=== PATIENT | male | born 1940 | race Caucasian/White ===

== ENCOUNTER 2022-01-19 15:43 | Inpatient (IN) | payer MEDICARE, BC ==
[~2022-01-19] VITALS: Ht 180.3 cm; Wt 81.2 kg
[2022-01-19] MEDS ORDERED: IPRATROPIUM BROMIDE 0.5 MG/2.5 ML NEBU NEB ONE (16:15)
[2022-01-19] MEDS ORDERED: methylPREDNISolone SOD SUCC 125 MG/2 ML VIAL IV ONE (16:15)
[2022-01-19] MEDS ORDERED: ALBUTEROL SULFATE 2.5 MG/3 ML NEBU NEB ONE (16:15)
--- NOTE | 2022-01-19 16:15 | NUR ---
BIB [facility] from home with c/o SOB. Pt arrives A/OX4, states he has been short of breath for about two weeks and it has gotten progressively worse. Pt states he has hx of COPD and is on O2 2L at home. Pt arrives on O2 4L via NC. Pt placed in room 1B and placed on cont playground monitor, pulse ox and BP.
[2022-01-19] MEDS ORDERED: IPRATROPIUM BROMIDE 0.5 MG/2.5 ML NEBU ONE (16:18)
[2022-01-19] MEDS ORDERED: ALBUTEROL SULFATE 2.5 MG/ 0.5 ML NEBU ONE (16:18)
[2022-01-19 16:29] LABS: HEMATOCRIT 44.3 % (36.7-47.1); MEAN CORPUSCULAR HEMOGLOBIN 27.6 uug (23.8-33.4); MEAN CORPUSCULAR VOLUME 84.1 fL (73.0-96.2); PLATELET COUNT (AUTO) 272 K/uL (152-348)
[2022-01-19] MEDS ORDERED: methylPREDNISolone SOD SUCC 125 MG/2 ML VIAL ONE (16:30)
[2022-01-19] MEDS ORDERED: PRED2.5T PO (16:37)
[2022-01-19] MEDS ORDERED: CEFU500T66 PO (16:37)
[2022-01-19] MEDS ORDERED: FLUT1BLS6 IH (16:37)
[2022-01-19] MEDS ORDERED: TAMS-3 PO (16:37)
[2022-01-19] MEDS ORDERED: FINA5TAB11 PO (16:37)
[2022-01-19] MEDS ORDERED: LISI10TA29 PO (16:37)
[2022-01-19] MEDS ORDERED: ACLI1AER PO (16:37)
[2022-01-19] MEDS ORDERED: FURO40TA5 PO (16:37)
--- NOTE | 2022-01-19 16:40 | NUR ---
HHN TX complete, no acute distress noted at this time.
[2022-01-19 16:43] LABS: CARBON DIOXIDE 30 mmol/L (21-32); CHLORIDE 102 mmol/L (98-107); CREATININE 1.8 mg/dL (0.6-1.3); GLUCOSE 100 mg/dL (74-106); POTASSIUM 5.2 mmol/L (3.5-5.1); UREA NITROGEN, BLOOD 40 mg/dL (7-18)
[2022-01-19 16:52] LABS: ALANINE AMINOTRANSFERASE 27 U/L (16-63); ALKALINE PHOSPHATASE 108 U/L (50-136); ASPARTATE AMINOTRANSFERASE 10 U/L (15-37); BILIRUBIN,DIRECT 0.2 mg/dL (0.0-0.2); BILIRUBIN,TOTAL 0.5 mg/dL (0.2-1.0); TOTAL PROTEIN, SERUM 6.7 g/dL (6.4-8.2)
--- NOTE | 2022-01-19 18:00 | NUR ---
Called [facility] for admission, to call back.
--- NOTE | 2022-01-19 19:15 | NUR ---
Brief report received from Chinedu RN, pt on holding pattern til report can be accepted by teleRN. Nothing pending. Pt is stable, VSS, PE WNL, no complaints of sob, n/v, dizziness and only minor complaints of pain to Rt flank region. No s/sx of distress present. Will call tele after shift change to expo transport.
--- NOTE | 2022-01-19 20:30 | NUR ---
Pt being wheeled upstairs at this moment by Sup and aid going to room 318, thorough report given to staff PMRN, RN ready to accept him and green light given. Pt is aaox4, in good spirits, no s/sxof distress. VSS, PE WNL. Denies any SOB, n/v, dizziness and only complainingof mild to mod pain in rt flank region.
[2022-01-19] MEDS ORDERED: ONDANSETRON 4 MG/2 ML VIAL IV PRN (20:45)
[2022-01-19] MEDS ORDERED: IPRATROPIUM BROMIDE 0.5 MG/2.5 ML NEBU NEB PRN (20:45)
[2022-01-19] MEDS ORDERED: ALBUTEROL SULFATE 2.5 MG/3 ML NEBU NEB PRN (20:45)
--- NOTE | 2022-01-19 20:45 | NUR ---
ADMITTED PATIENT IN TELE FLOOR UNDER THE CARE OF DR. SHAY, PATIENT ALERT ORIENTED, SOB DURING EXCERTION, NO CHEST PAIN, ON 2 LITERS NC SAT WNL. USES URINAL FOR BLADDER ELIMINATION. WITH SACRUM REDNESS, ADONIS LEG/FEET DRY FLAKI SKIN, TELE MONITOR SINUS RHYTHM AT THIS TIME. CONT TO MONITOR.
[2022-01-19 21:10] VITALS: BP 157/97
[2022-01-19] MEDS: IV 1/2NS 1000 ML 1,000 ML IV PRN ×2 (21:36→21:52)
[2022-01-19] MEDS: DOCUSATE SODIUM 100 MG CAPSULE PO SCH (21:51)
[2022-01-20 00:09] VITALS: BP 136/78
[2022-01-20] MEDS: MORPHINE SULFATE 2 MG/1 ML DISP.SYRIN IV PRN (01:37)
[2022-01-20 04:18] VITALS: BP 135/80
[2022-01-20] MEDS: PANTOPRAZOLE SODIUM 40 MG TABLET.DR PO SCH (06:05)
[2022-01-20 06:27] LABS: HEMATOCRIT 41.5 % (36.7-47.1); MEAN CORPUSCULAR HEMOGLOBIN 28.5 uug (23.8-33.4); MEAN CORPUSCULAR VOLUME 84.1 fL (73.0-96.2); PLATELET COUNT (AUTO) 230 K/uL (152-348)
[2022-01-20 06:54] LABS: ALANINE AMINOTRANSFERASE 27 U/L (16-63); ALKALINE PHOSPHATASE 99 U/L (50-136); ASPARTATE AMINOTRANSFERASE 9 U/L (15-37); BILIRUBIN,TOTAL 0.5 mg/dL (0.2-1.0); CARBON DIOXIDE 30 mmol/L (21-32); CHLORIDE 102 mmol/L (98-107); CHOLESTEROL 136 mg/dL (<200); CREATININE 1.9 mg/dL (0.6-1.3); GLUCOSE 119 mg/dL (74-106); HDL CHOLESTEROL 87 mg/dL (40-60); MAGNESIUM 2.4 mg/dL (1.8-2.4); PHOSPHOROUS 4.1 mg/dL (2.5-4.9); POTASSIUM 5.2 mmol/L (3.5-5.1); TOTAL PROTEIN, SERUM 6.1 g/dL (6.4-8.2); TRIGLYCERIDES 63 MG/DL (30-150); UREA NITROGEN, BLOOD 43 mg/dL (7-18)
--- NOTE | 2022-01-20 07:30 | NUR ---
RECEIVED PATIENT IN BED AWAKE ALERT AND ORIENTED HOB UP WITH O2 AT 2L/M BY NASAL CANULA WITH NO SOB AT THIS TIME REMAIN ON IVF ORDERED WITH NO S/S OF INFILTERATION ON SITE.TELE IS SR.CALL LIGHT AND PERSONAL BELONGINGS ARE WITHIN EASY REACH MADE COMFORTABLE AND WILL CONTINUE TO OBSERVE.
[2022-01-20] MEDS: FLUTICASONE/VILANTEROL 1 EACH BLST.W.DEV INH SCH (08:24)
--- NOTE | 2022-01-20 09:59 | NUR ---
BRIAN MONTALVO CHICKEN STUFFER HERE TO SEE PATIENT WITH ORDERS FOR CT ABDOMEN/PELVIS AND CHEST NO CONTRAST AND NOTED.
--- NOTE | 2022-01-20 11:00 | NUR ---
MEDICAL RELEASE FORMS SIGNED BY THE PATIENT AND FAXED TO DR GARDNER ORDERED FOR HIS PATHOLOGY AND MEDICAL RECORD REPORT.
[2022-01-20 11:30] VITALS: BP 117/65
[2022-01-20] MEDS: IV 1/2NS 1000 ML 1,000 ML IV PRN (11:52)
--- NOTE | 2022-01-20 13:45 | NUR ---
PATIENT TAKEN BY BED TO THE RADIOLOGY DEPT FOR CT OF THE CHEST PELVIS AND ABDOMEN ORDERED AND BACK TO BED.
[2022-01-20] MEDS: methylPREDNISolone SOD SUCC 40 MG/ML VIAL IV SCH ×2 (13:57→22:16)
[2022-01-20] MEDS ORDERED: methylPREDNISolone SOD SUCC 40 MG/ML VIAL IV SCH (14:00)
[2022-01-20] MEDS: ALBUTEROL SULFATE 1.25 MG/3 ML NEBU NEB SCH ×2 (14:05→18:55)
[2022-01-20] MEDS: IPRATROPIUM BROMIDE 0.5 MG/2.5 ML NEBU NEB SCH ×2 (14:05→18:55)
[2022-01-20] MEDS ORDERED: ALBUTEROL INH PRN (17:00)
[2022-01-20] MEDS ORDERED: [UNRECOGNIZED DRUG - OTHER] INH PRN (17:00)
[2022-01-20 17:01] VITALS: BP 130/70
[2022-01-20] MEDS: [UNRECOGNIZED DRUG - OTHER] INH PRN (17:15)
[2022-01-20] MEDS: ALBUTEROL INH PRN (17:15)
--- NOTE | 2022-01-20 17:22 | NUR ---
PATIENT IS VERY ANXIOUS ASKING FOR HIS INHALER SPECIFICALLY THE ALBUTEROL STATED ITS THE ONE THAT HELPS HIM THE MOST DELORIS QUALITY CONTROL SYSTEMS MANAGER WAS NOTIFIED WITH NEW ORDERS AND NOTED GIVEN ORDERED.
[2022-01-20 20:18] VITALS: BP 146/80
[2022-01-20] MEDS: TEMAZEPAM 15 MG CAPSULE PO PRN (20:45)
[2022-01-20 21:27] LABS: *BILIRUBIN,URIN NEGATIVE (NEGATIVE); *BLOOD, URINE NEGATIVE (NEGATIVE); *CLARITY,URINE CLEAR (CLEAR); *COLOR,URINE YELLOW (YELLOW); *KETONES,URINE NEGATIVE (NEGATIVE); *UROBILINOGEN,URINE 0.2 E.U./dl (NORMAL); LEUKOCYTE ESTERASE ,URINE NEGATIVE (NEGATIVE); NITRITE, URINE POSITIVE (NEGATIVE); PH,URINE 5.5 (5.0-8.0); UGLUCOSE NEGATIVE (NEGATIVE)
[2022-01-20] MEDS: DOCUSATE SODIUM 100 MG CAPSULE PO SCH (22:00)
[2022-01-20] MEDS: TAMSULOSIN HCL 0.4 MG CAP.SR.24H PO SCH (22:15)
[2022-01-20] MEDS: levoFLOXacin 750MG/D5W 750 MG in PREMIXED 1 EACH IV SCH (22:15)
[2022-01-20 22:41] LABS: BACTERIA,URINE NONE SEEN /HPF (NONE SEEN); RBC,URINE NONE SEEN /HPF (0-3); SQUAMOUS EPITHELIAL CELL,UR FEW /HPF (NONE SEEN); WBC,URINE 0-3 /HPF (0-3)
[2022-01-21 00:35] VITALS: BP 125/74
[2022-01-21] MEDS: ALBUTEROL SULFATE 1.25 MG/3 ML NEBU NEB SCH ×4 (00:48→21:11)
[2022-01-21] MEDS: IPRATROPIUM BROMIDE 0.5 MG/2.5 ML NEBU NEB SCH ×4 (00:48→21:11)
[2022-01-21 04:24] VITALS: BP 123/68
[2022-01-21] MEDS: methylPREDNISolone SOD SUCC 40 MG/ML VIAL IV SCH ×3 (05:52→21:07)
[2022-01-21] MEDS: PANTOPRAZOLE SODIUM 40 MG TABLET.DR PO SCH (06:05)
[2022-01-21 06:31] LABS: HEMATOCRIT 40.3 % (36.7-47.1); MEAN CORPUSCULAR HEMOGLOBIN 28.3 uug (23.8-33.4); MEAN CORPUSCULAR VOLUME 83.9 fL (73.0-96.2); PLATELET COUNT (AUTO) 197 K/uL (152-348)
--- NOTE | 2022-01-21 06:38 | NUR ---
Patient rested well in between care; urine sent to lab; pt remains SOB on exertion and tolerates 2liters oxygen via nasal cannula; continue plan of care.
[2022-01-21 07:08] LABS: CARBON DIOXIDE 28 mmol/L (21-32); CHLORIDE 102 mmol/L (98-107); CREATININE 1.9 mg/dL (0.6-1.3); GLUCOSE 116 mg/dL (74-106); POTASSIUM 5.2 mmol/L (3.5-5.1); UREA NITROGEN, BLOOD 49 mg/dL (7-18)
--- NOTE | 2022-01-21 07:50 | NUR ---
received awake and oriented x4. on 2.5 lpm nc satting 98%. attempted to titrate down to 2lpm but he refused states he can't breathe at 2lpm. states at home he's at 2.5lpm as well. r/b explained but he's adamant. denies pain. iv access intact no ss of infiltration or phlebitis. bed lowest, locked and alarm on, siderails up, call light in reach. needs attended.
[2022-01-21] MEDS: FINASTERIDE 5 MG TABLET PO SCH (08:38)
[2022-01-21] MEDS: LISINOPRIL 10 MG TABLET PO SCH (08:38)
[2022-01-21] MEDS: FLUTICASONE/VILANTEROL 1 EACH BLST.W.DEV INH SCH (08:38)
[2022-01-21] MEDS: FUROSEMIDE 40 MG TABLET PO SCH (08:38)
--- NOTE | 2022-01-21 09:47 | NUR ---
vandana mederos was here and informed me she ordered thoracentesis for the patient but will let us know when it will be done pending if ultrasound is working once she hears from md. she said she informed the patient not to eat or drinking for now, but when i went to patient's room he already ate a little and drank his coffee. no rosa m made aware.
[2022-01-21 11:40] VITALS: BP 120/74
--- NOTE | 2022-01-21 12:00 | NUR ---
per route sales specialist meet, she spoke with radiologist plan for ct needed biopsy of lung mass and to keep pt npo carried out. patient made aware.
--- NOTE | 2022-01-21 14:04 | NUR ---
[id number]- contacted [facility] and asked time of thoracentesis and was informed per dr. polanco thoracentesis is on hold for now and will have biopsy for right lung mass tomorrow. contacted [facility] tech and was informed biopsy will be done tomorrow at 2pm. vandana dsouza made aware with order to resume diet and npo after midnight tonight. vandana wilburn made aware. patient aware and agreeable.
[2022-01-21 16:00] VITALS: BP 142/85
[2022-01-21] MEDS: [UNRECOGNIZED DRUG - OTHER] INH PRN (16:06)
[2022-01-21] MEDS: ALBUTEROL INH PRN (16:06)
--- NOTE | 2022-01-21 16:06 | NUR ---
pt became short of breath spo2 noted 88%, albuterol inhaler administered as ordered. encourage pursed lip, deep breathing o2 sat went up 93% will cont to observe.
--- NOTE | 2022-01-21 16:18 | NUR ---
at [address] vallecillo of frequent pac in heart rhythm with no new order received. registry np cosmo notified pt c/o sore throat with new order carried out.
[2022-01-21] MEDS: BENZOCAINE/MENTH/CETYLPYRD LOZENGE MM PRN (16:57)
--- NOTE | 2022-01-21 20:13 | NUR ---
Patient alert x4.O2 at 3LPm via NC .Denies SOB.HOB elevated.Breathing tx given by RT.NSR on tele. IV patent and intact on right FA 22g .Compliant with medication.Continent .Able to use urinal.Continue safety measures.NPO at midnight.Call light with in reach. Will continue to monitor.
[2022-01-21 20:36] VITALS: BP 142/84
[2022-01-21] MEDS: DOCUSATE SODIUM 100 MG CAPSULE PO SCH (20:42)
[2022-01-21] MEDS: TAMSULOSIN HCL 0.4 MG CAP.SR.24H PO SCH (20:42)
[2022-01-22 00:35] VITALS: BP 134/71
[2022-01-22] MEDS: IPRATROPIUM BROMIDE 0.5 MG/2.5 ML NEBU NEB SCH ×3 (01:31→20:16)
[2022-01-22] MEDS: ALBUTEROL SULFATE 1.25 MG/3 ML NEBU NEB SCH ×3 (01:32→20:17)
[2022-01-22] MEDS: ACETAMINOPHEN 325 MG TABLET PO PRN (02:11)
[2022-01-22 04:00] VITALS: BP 102/61
[2022-01-22] MEDS: methylPREDNISolone SOD SUCC 40 MG/ML VIAL IV SCH ×3 (05:38→21:22)
[2022-01-22] MEDS: PANTOPRAZOLE SODIUM 40 MG TABLET.DR PO SCH (06:05)
[2022-01-22] MEDS: FLUTICASONE/VILANTEROL 1 EACH BLST.W.DEV INH SCH (08:43)
[2022-01-22] MEDS: FUROSEMIDE 40 MG TABLET PO SCH (08:45)
[2022-01-22] MEDS: LISINOPRIL 10 MG TABLET PO SCH (08:45)
[2022-01-22] MEDS: FINASTERIDE 5 MG TABLET PO SCH (08:45)
[2022-01-22] MEDS: MORPHINE SULFATE 2 MG/1 ML DISP.SYRIN IV PRN ×2 (11:05→20:20)
[2022-01-22 11:45] VITALS: BP 95/47
[2022-01-22] MEDS ORDERED: IPRATROPIUM BROMIDE 0.5 MG/2.5 ML NEBU NEB SCH ×2 (12:00→15:00)
[2022-01-22] MEDS ORDERED: ALBUTEROL SULFATE 1.25 MG/3 ML NEBU NEB SCH (15:00)
--- NOTE | 2022-01-22 15:33 | NUR ---
patient s/p right lung biopsy, patient arrived to unit with c/o of SOB at this time, assisted patient to sit up right, offered additional pillows. spo2 96% on 3L v/s wnl at this time, no bleeding from biopsy site at this time. after 5 minutes patient states feeling better, encouraged pursed lip breathing. - severiano hays RN
[2022-01-22 16:01] VITALS: BP 141/77
[2022-01-22] MEDS: BENZOCAINE/MENTH/CETYLPYRD LOZENGE MM PRN (16:32)
[2022-01-22 20:00] VITALS: BP 111/60
[2022-01-22] MEDS: TAMSULOSIN HCL 0.4 MG CAP.SR.24H PO SCH (20:20)
[2022-01-22] MEDS: DOCUSATE SODIUM 100 MG CAPSULE PO SCH ×2 (20:20→21:00)
[2022-01-22] MEDS: levoFLOXacin 750MG/D5W 750 MG in PREMIXED 1 EACH IV SCH (21:22)
[2022-01-22] MEDS ORDERED: SODIUM POLYSTYRENE SULFONATE 15 G/60 ML LIQUID UDC PO ONE (23:45)
[2022-01-23] VITALS: BP 121/68
[2022-01-23] MEDS: IPRATROPIUM BROMIDE 0.5 MG/2.5 ML NEBU NEB SCH ×4 (00:38→20:15)
[2022-01-23] MEDS: ALBUTEROL SULFATE 1.25 MG/3 ML NEBU NEB SCH ×4 (00:38→20:15)
[2022-01-23] MEDS ORDERED: SODIUM POLYSTYRENE SULFONATE 15 G/60 ML LIQUID UDC PO ONE (01:15)
[2022-01-23 04:00] VITALS: BP 121/72
[2022-01-23] MEDS: methylPREDNISolone SOD SUCC 40 MG/ML VIAL IV SCH ×3 (06:19→21:34)
[2022-01-23] MEDS: PANTOPRAZOLE SODIUM 40 MG TABLET.DR PO SCH (06:19)
[2022-01-23] MEDS: BENZOCAINE/MENTH/CETYLPYRD LOZENGE MM PRN (06:21)
--- NOTE | 2022-01-23 06:43 | NUR ---
Slept throughout the night. No pain. C/o SOB on exertion. On 3L NC, tolerating well. When O2 titrated down, states increased SOB. Able to make needs known. Safety maintained. Will endorse to day shift.
[2022-01-23 06:50] LABS: HEMATOCRIT 41.1 % (36.7-47.1); MEAN CORPUSCULAR HEMOGLOBIN 28.8 uug (23.8-33.4); MEAN CORPUSCULAR VOLUME 84.1 fL (73.0-96.2); PLATELET COUNT (AUTO) 178 K/uL (152-348)
[2022-01-23 07:01] LABS: CARBON DIOXIDE 32 mmol/L (21-32); CHLORIDE 102 mmol/L (98-107); CREATININE 2.1 mg/dL (0.6-1.3); GLUCOSE 135 mg/dL (74-106); POTASSIUM 5.6 mmol/L (3.5-5.1); UREA NITROGEN, BLOOD 72 mg/dL (7-18)
--- NOTE | 2022-01-23 07:53 | NUR ---
Received pt, pt is sleeping at this time, oxygen titrated from 3L to 2L nasal cannula. Pt saturating 97%. will continue to monitor.
[2022-01-23] MEDS: FUROSEMIDE 40 MG TABLET PO SCH (09:50)
[2022-01-23] MEDS: LISINOPRIL 10 MG TABLET PO SCH (09:50)
[2022-01-23] MEDS: FLUTICASONE/VILANTEROL 1 EACH BLST.W.DEV INH SCH (09:51)
[2022-01-23] MEDS: FINASTERIDE 5 MG TABLET PO SCH (09:51)
[2022-01-23 16:07] VITALS: BP 111/76
--- NOTE | 2022-01-23 19:00 | NUR ---
Received patient on bed, alert and oriented x3-4, no shortness of breath, on oxygen at 2L/min via NC. Safety precautions provided, Reoriented fo the use of call light, call light placed within reach.
[2022-01-23] MEDS: DOCUSATE SODIUM 100 MG CAPSULE PO SCH (20:01)
[2022-01-23] MEDS: TAMSULOSIN HCL 0.4 MG CAP.SR.24H PO SCH (20:01)
[2022-01-23] MEDS: ACETAMINOPHEN 325 MG TABLET PO PRN (20:01)
--- NOTE | 2022-01-23 20:10 | NUR ---
Requested for Tylenol for mild pain 3/10 at right lower rib.
[2022-01-24 00:26] VITALS: BP 128/66
[2022-01-24] MEDS: ALBUTEROL SULFATE 1.25 MG/3 ML NEBU NEB SCH ×4 (01:30→19:29)
[2022-01-24] MEDS: IPRATROPIUM BROMIDE 0.5 MG/2.5 ML NEBU NEB SCH ×4 (01:30→19:29)
[2022-01-24 04:48] VITALS: BP 135/63
--- NOTE | 2022-01-24 05:40 | NUR ---
Slept intermittently, with continuous O2 at 2L/min via NC, not in labored breathing, no complaint of pain. Compliant with medications, patient in fair condition.
--- NOTE | 2022-01-24 05:44 | NUR ---
On sinus rhythm with regular PAC, HR 70-103/min
[2022-01-24] MEDS: PANTOPRAZOLE SODIUM 40 MG TABLET.DR PO SCH (06:06)
[2022-01-24] MEDS: methylPREDNISolone SOD SUCC 40 MG/ML VIAL IV SCH ×3 (06:07→21:09)
[2022-01-24 07:24] LABS: HEMATOCRIT 41.7 % (36.7-47.1); MEAN CORPUSCULAR HEMOGLOBIN 28.1 uug (23.8-33.4); PLATELET COUNT (AUTO) 183 K/uL (152-348)
[2022-01-24 07:34] LABS: CARBON DIOXIDE 32 mmol/L (21-32); CHLORIDE 103 mmol/L (98-107); CREATININE 2.1 mg/dL (0.6-1.3); GLUCOSE 142 mg/dL (74-106); UREA NITROGEN, BLOOD 70 mg/dL (7-18)
[2022-01-24] MEDS: FINASTERIDE 5 MG TABLET PO SCH (09:52)
[2022-01-24] MEDS: FLUTICASONE/VILANTEROL 1 EACH BLST.W.DEV INH SCH (09:52)
[2022-01-24] MEDS: FUROSEMIDE 40 MG TABLET PO SCH (09:52)
[2022-01-24] MEDS: LISINOPRIL 10 MG TABLET PO SCH (10:10)
[2022-01-24 11:44] VITALS: BP 129/79
--- NOTE | 2022-01-24 11:55 | NUR ---
pt picked up by [facility] ambulance, BLS ok per . Pt being transported to [facility] for MRI of ORB face and neck with and without contrast. Contrast consent signed by pt, mri checklist complete, IV site intact and patent. Pt vitals 98.4 temp BP 129/79, HR 86 rr 18 SpO2 99% on 2L NC.
--- NOTE | 2022-01-24 14:30 | NUR ---
pt unable to complete MRI due to inability to lay still. pt stable on 2 L NC, does not want to titrate lower although saturates at 98%. Call light within reach, comfort measures provided, no signs of acute distress.
[2022-01-24 16:00] VITALS: BP 126/70
[2022-01-24] MEDS: GLUCERNA SHAKE 237 ML CAN PO SCH (16:56)
[2022-01-24 19:48] VITALS: BP 132/69
[2022-01-24] MEDS: DOCUSATE SODIUM 100 MG CAPSULE PO SCH (20:40)
[2022-01-24] MEDS: TAMSULOSIN HCL 0.4 MG CAP.SR.24H PO SCH (20:40)
[2022-01-24] MEDS: BENZOCAINE/MENTH/CETYLPYRD LOZENGE MM PRN (20:50)
[2022-01-24] MEDS: levoFLOXacin 750MG/D5W 750 MG in PREMIXED 1 EACH IV SCH (21:09)
[2022-01-24] MEDS: MORPHINE SULFATE 2 MG/1 ML DISP.SYRIN IV PRN (21:18)
[2022-01-24] MEDS: ACETAMINOPHEN 325 MG TABLET PO PRN (21:25)
[2022-01-24] MEDS: IV NS 1000 ML 1,000 ML IV SCH (23:36)
[2022-01-25] VITALS: BP 117/58
[2022-01-25] MEDS: ALBUTEROL SULFATE 1.25 MG/3 ML NEBU NEB SCH ×5 (01:14→19:22)
[2022-01-25] MEDS: IPRATROPIUM BROMIDE 0.5 MG/2.5 ML NEBU NEB SCH ×5 (01:14→19:22)
[2022-01-25 04:00] VITALS: BP 122/67
--- NOTE | 2022-01-25 05:40 | NUR ---
Slept intermittently. Pt is alert and able to make needs known. Pt wanted to refuse colace, educated on importance of medication and pt educated that he did not have a bowel movement since being admitted, he stated that he does not want to have one while he is admitted in the hospital. Explained to patient that having regular bowel movements is encouraged and that he should take his colace and patient agreed. IV site is intact. Satting 96%-98% on 2L but still c/o SOB. Tolerated all medications given. Safety maintained throughout the shift. Will endorse to day shift.
[2022-01-25] MEDS: PANTOPRAZOLE SODIUM 40 MG TABLET.DR PO SCH (06:21)
[2022-01-25] MEDS: methylPREDNISolone SOD SUCC 40 MG/ML VIAL IV SCH ×3 (06:21→16:56)
[2022-01-25] MEDS: IV NS 1000 ML 1,000 ML IV SCH ×3 (06:22→23:48)
[2022-01-25 07:10] LABS: HEMATOCRIT 41.8 % (36.7-47.1); MEAN CORPUSCULAR HEMOGLOBIN 28.2 uug (23.8-33.4); MEAN CORPUSCULAR VOLUME 84.2 fL (73.0-96.2); PLATELET COUNT (AUTO) 149 K/uL (152-348)
[2022-01-25 07:25] LABS: CARBON DIOXIDE 31 mmol/L (21-32); CHLORIDE 105 mmol/L (98-107); GLUCOSE 116 mg/dL (74-106); POTASSIUM 5.2 mmol/L (3.5-5.1)
[2022-01-25 07:38] LABS: UREA NITROGEN, BLOOD 83 mg/dL (7-18)
--- NOTE | 2022-01-25 07:50 | NUR ---
received awake and oriented x4, on his cellphone. on 2 lpm nc satting 98% but noted still with episodes of labored breathing. encouraged pursed lip breathing and pt is compliant. nsr on tele with frequent pacs. denies pain. iv access intact. safety maintained. kept comfortable
[2022-01-25 08:32] VITALS: BP 124/62
[2022-01-25] MEDS: GLUCERNA SHAKE 237 ML CAN PO SCH ×2 (08:49→16:56)
[2022-01-25] MEDS: FUROSEMIDE 40 MG TABLET PO SCH (08:49)
[2022-01-25] MEDS: LISINOPRIL 10 MG TABLET PO SCH (08:49)
[2022-01-25] MEDS: FINASTERIDE 5 MG TABLET PO SCH (08:49)
[2022-01-25] MEDS: FLUTICASONE/VILANTEROL 1 EACH BLST.W.DEV INH SCH (08:50)
[2022-01-25 11:41] VITALS: BP 134/74
[2022-01-25 16:29] VITALS: BP 125/57
--- NOTE | 2022-01-25 18:32 | NUR ---
dyspnea with exertion. denies pain. needs attended.
[2022-01-25 20:00] VITALS: BP 149/89
[2022-01-25] MEDS: TAMSULOSIN HCL 0.4 MG CAP.SR.24H PO SCH (20:07)
[2022-01-25] MEDS: DOCUSATE SODIUM 100 MG CAPSULE PO SCH (20:13)
[2022-01-26] VITALS: BP 138/75
[2022-01-26] MEDS: ALBUTEROL SULFATE 1.25 MG/3 ML NEBU NEB SCH ×4 (01:16→20:34)
[2022-01-26] MEDS: IPRATROPIUM BROMIDE 0.5 MG/2.5 ML NEBU NEB SCH ×4 (01:16→20:34)
[2022-01-26] MEDS: ACETAMINOPHEN 325 MG TABLET PO PRN ×2 (01:32→21:06)
[2022-01-26 04:00] VITALS: BP 140/82
[2022-01-26] MEDS: PANTOPRAZOLE SODIUM 40 MG TABLET.DR PO SCH (06:16)
[2022-01-26 06:49] LABS: HEMATOCRIT 41.9 % (36.7-47.1); MEAN CORPUSCULAR VOLUME 84.3 fL (73.0-96.2); PLATELET COUNT (AUTO) 157 K/uL (152-348)
[2022-01-26 06:54] LABS: CARBON DIOXIDE 31 mmol/L (21-32); CHLORIDE 108 mmol/L (98-107); GLUCOSE 112 mg/dL (74-106); POTASSIUM 5.1 mmol/L (3.5-5.1); UREA NITROGEN, BLOOD 71 mg/dL (7-18)
--- NOTE | 2022-01-26 07:00 | NUR ---
Patient slept intermittently.HOB elevated .NSR on tele. Noted SOB after morning care.O2 sat went down to 82 %.Placed patient on simple mask at 6 LPM saturating at 99 %.Pierre Menchaca notified. Awaiting response.
--- NOTE | 2022-01-26 07:12 | NUR ---
Patient stated he feels better.Oxygen titrate back to 3LPM via NC saturating 97 -98 %.HOB remained elevated. Call light with in reach.Endorse to oncoming shift.
[2022-01-26] MEDS: IV NS 1000 ML 1,000 ML IV SCH ×4 (07:30→17:51)
--- NOTE | 2022-01-26 08:00 | NUR ---
RECEIVED PATIENT IN BED AWAKE ALERT AND ORIENTED WITH O2 AR 3L/M BY N/C WITH NO SOB AT THIS TIME DENIES DISCOMFORTS CALL LIGHTS AND HIS PERSONAL BELONGINGS ARE WITHIN EASY REACH WILL CONTINUE TO OBSERVE
[2022-01-26] MEDS: methylPREDNISolone SOD SUCC 40 MG/ML VIAL IV SCH (08:38)
[2022-01-26] MEDS: FINASTERIDE 5 MG TABLET PO SCH (08:38)
[2022-01-26] MEDS: FLUTICASONE/VILANTEROL 1 EACH BLST.W.DEV INH SCH (08:39)
[2022-01-26] MEDS: GLUCERNA SHAKE 237 ML CAN PO SCH ×2 (08:39→17:02)
[2022-01-26 12:09] VITALS: BP 140/78
--- NOTE | 2022-01-26 13:03 | NUR ---
PATIENT IS HAVING DIFFICULTY BREATHING HE IS HAVING PHYSICAL THERAPY AND HIS SATS ARE AT 87 PERCENT O2 INCREASED TO 5L/M AND HIS SATS ARE NOW 90-91 PERCENT DELORIS BAH HERE AND AWARE WITH NEW ORDERS AND NOTED.
[2022-01-26 13:46] LABS: ABG BASE EXCESS 0.4 mmol/L; ABG HCO3 27.1 mmol/L; ABG PCO2 51.2 mmHg (35.0-45.0); ABG PH 7.341 (7.350-7.450); ABG PO2 76.5 mmHg (75.0-100.0); ABG SITE RIGHT RADIAL; ABG TOTAL HEMOGLOBIN 15.2 G/dL (13.5-18.0); COHb 0.9 % (0.5-1.5); MetHb 0.2 % (0.0-1.5); O2Hb 93.7 % (94.0-97.0); VENT MODE Nasal Cannula
[2022-01-26] MEDS ORDERED: CEFEPIME HCL 1 G in IV DEXTROSE 5% 50 ML IV SCH (14:00)
[2022-01-26] MEDS: CEFEPIME HCL 1 G in IV DEXTROSE 5% 50 ML IV SCH (14:07)
[2022-01-26] MEDS: methylPREDNISolone SOD SUCC 125 MG/2 ML VIAL IV SCH ×2 (15:11→21:07)
--- NOTE | 2022-01-26 15:13 | NUR ---
IVF INFUSING NO NEED TO HANG A NEW BAG AT THIS TIME.
--- NOTE | 2022-01-26 15:30 | NUR ---
TOSHA DAVILA HERE TO TAKE PATIENT FOR CT NECK AND FACE ORDERED BUT PATIENT REFUSED STATED UNABLE TO LAY FLAT TO HAVE THIS PROCEDURE DONE DELORIS BAH HERE AND AWARE WITH NO NEW ORDERS AT THIS TIME.
[2022-01-26 16:52] VITALS: BP 143/62
[2022-01-26] MEDS ORDERED: methylPREDNISolone SOD SUCC 40 MG/ML VIAL IV SCH (17:00)
--- NOTE | 2022-01-26 18:00 | NUR ---
O2 TITRATED TO 2L/M AT THIS TIME AND HE IS TOLERATING IT WITH ADEQUATE SATS HHN GIVEN ORDERED MADE COMFORTABLE AND WILL CONTINUE TO OBSERVE.
--- NOTE | 2022-01-26 19:30 | NUR ---
Received pt awake, alert and orientex4. Pt in no acute distress.Pt on sinus rhythm. Iv intact. Pt on3l nasal cannula Safety and comfort provided. Will continue to monitor.
[2022-01-26 20:00] VITALS: BP 153/92
[2022-01-26] MEDS: TAMSULOSIN HCL 0.4 MG CAP.SR.24H PO SCH (21:00)
--- NOTE | 2022-01-26 21:00 | NUR ---
Pt offered to change his diaper, fix his bed and turned him. Pt refused and doesn't want to be moved. Will continue to monitor.
[2022-01-26] MEDS: DOCUSATE SODIUM 100 MG CAPSULE PO SCH (21:06)
[2022-01-26] MEDS: levoFLOXacin 750MG/D5W 750 MG in PREMIXED 1 EACH IV SCH (21:06)
[2022-01-26] MEDS: TEMAZEPAM 15 MG CAPSULE PO PRN (23:08)
[2022-01-27] VITALS: BP 127/66
--- NOTE | 2022-01-27 00:30 | NUR ---
Pt in no acute distress. Pt offered to change his position and change diaper. Pt refusing. Pt was told the risk and benefits of turning position but pt still refused. Pt state he is fine and doesn't want to be move.
[2022-01-27] MEDS: ALBUTEROL SULFATE 1.25 MG/3 ML NEBU NEB SCH ×4 (01:18→21:01)
[2022-01-27] MEDS: IPRATROPIUM BROMIDE 0.5 MG/2.5 ML NEBU NEB SCH ×4 (01:19→21:01)
[2022-01-27] MEDS: CEFEPIME HCL 1 G in IV DEXTROSE 5% 50 ML IV SCH ×2 (02:43→14:02)
[2022-01-27 04:00] VITALS: BP 134/88
[2022-01-27] MEDS: IV NS 1000 ML 1,000 ML IV SCH (05:36)
[2022-01-27] MEDS: methylPREDNISolone SOD SUCC 125 MG/2 ML VIAL IV SCH ×3 (06:07→21:59)
[2022-01-27] MEDS: PANTOPRAZOLE SODIUM 40 MG TABLET.DR PO SCH (06:07)
--- NOTE | 2022-01-27 06:26 | NUR ---
Pt offered numerous times for him to be turned q2h and change diaper. Pt refusing. Pt educated about the risk and benefits of changing position on bed to prevent pressure ulcer but pt still refused. Pt stated he doesn't want to be moved. Pt stable and in no acute distress. Will continue to monitor and endorse to incoming nurse.
--- NOTE | 2022-01-27 06:27 | NUR ---
Pt slept comfortably. Pt in no acute distress. Pt on sinus rhythm. Pt prescribed medication given and pt tolerated it well. Pt given Tylenol 650 mg prn at 2106H. Pt tolerated it well. Restoril prn given at 2308h as per pt request. Pt tolerated it well. All needs are met. Pt stable. Pt refused to be change by campus coordinator. Safety and comfort provided. Will continue to endorse to incoming nurse for continuity of care.
--- NOTE | 2022-01-27 07:40 | NUR ---
DR COATES HERE SEEN PATIENT WITH NEW ORDERS AND NOTED.
--- NOTE | 2022-01-27 08:00 | NUR ---
DR ROQUE HERE SEEN PATIENT WITH NEW ORDERS PATIENT IS AWAKE ALERT AND VERBALLY RESPONSIVE ON HIGH FOWLERS POSITION WITH O2 AT 4L/M BY NASAL CANULA SAT IS 94-95 PERCENT ATTEMPTED TO LOWER O2 RATE BUT PATIENT REFUSED WANT RATE TO REMAIN AT 4L AT THIS TIME.IVF IS IN PROGRESS ORDERED WITH IV SITE VERY POSITIONAL AND PUMP BEEPING PATIENT IS A VERY HARD STICK WITH MULTIPLE FAILED ATTEMPTS MD NOTIFIED WITH OKAY TO INSERT MIDLINE AND NOTED.
[2022-01-27] MEDS: FLUTICASONE/VILANTEROL 1 EACH BLST.W.DEV INH SCH (08:19)
[2022-01-27] MEDS: GLUCERNA SHAKE 237 ML CAN PO SCH ×2 (08:19→16:41)
[2022-01-27] MEDS: FINASTERIDE 5 MG TABLET PO SCH (08:19)
[2022-01-27] MEDS: GUAIFENESIN LA 600 MG TABLET.SA PO SCH ×2 (08:35→21:57)
[2022-01-27] MEDS: HEPARIN SODIUM,PORCINE 5,000 UNITS/ML VIAL SQ SCH ×2 (08:36→22:10)
[2022-01-27 08:51] LABS: MEAN CORPUSCULAR HEMOGLOBIN 28.1 uug (23.8-33.4); MEAN CORPUSCULAR VOLUME 85.8 fL (73.0-96.2); PLATELET COUNT (AUTO) 131 K/uL (152-348)
[2022-01-27 08:58] LABS: CARBON DIOXIDE 30 mmol/L (21-32); CHLORIDE 108 mmol/L (98-107); CREATININE 1.8 mg/dL (0.6-1.3); GLUCOSE 119 mg/dL (74-106); POTASSIUM 5.5 mmol/L (3.5-5.1); UREA NITROGEN, BLOOD 71 mg/dL (7-18)
[2022-01-27] MEDS: ACETYLCYSTEINE 20% 800 MG/4 ML VIAL PO SCH ×2 (09:05→22:05)
--- NOTE | 2022-01-27 09:30 | NUR ---
HORACIO VACATION SALES ADVISOR HERE AND SEEN PATIENT WITH NEW ORDERS AND NOTED.
[2022-01-27 13:12] VITALS: BP 124/85
--- NOTE | 2022-01-27 14:00 | NUR ---
PATIENT REMAINS ON ATB ORDERED WITH NO ADVERSE OR ALLERGIC REACTIONS AT THIS TIME PATIENT IS ALERT AND ORIENTED AND HAS REFUSED TO BE BATH,CHANGE LINENS AND CHANGE DIAPER HE IS OCCASIONALLY INCONTINENT REFUSED FOR HIS HEAD OF BED TO BE LOWERED IN OTHER TO CHANGE HIM STATED UNABLE TO BREATH IF HIS POSITION IS CHANGED O2 SAT WITH 4L O2 IS 94-95 PERCENT WILL CONTINUE TO OFFER TO BATH CHANGE AND PROVIDE CLEANLINESS TO PREVENT SKIN BREAKDOWN.
--- NOTE | 2022-01-27 15:00 | NUR ---
ULTRA SOUND OF THE LUNGS DONE AND THE RESULT IS THAT PATIENT HAS MODERATE TO LARGE PLEURAL EFFUSSION IN THE RIGHT LUNG.
[2022-01-27 16:27] LABS: *BILIRUBIN,URIN NEGATIVE (NEGATIVE); *BLOOD, URINE 2+ (NEGATIVE); *CLARITY,URINE CLEAR (CLEAR); *COLOR,URINE YELLOW (YELLOW); *KETONES,URINE NEGATIVE (NEGATIVE); *UROBILINOGEN,URINE 0.2 E.U./dl (NORMAL); LEUKOCYTE ESTERASE ,URINE NEGATIVE (NEGATIVE); NITRITE, URINE NEGATIVE (NEGATIVE); PH,URINE 5.5 (5.0-8.0); UGLUCOSE NEGATIVE (NEGATIVE)
[2022-01-27 16:42] LABS: *CREATININE,URINE 47.9 mg/dL (30-125); *URINE TOTAL PROTEIN RANDOM 25.7 mg/dL (<150/24HR)
[2022-01-27 16:43] VITALS: BP 145/79
--- NOTE | 2022-01-27 18:00 | NUR ---
PATIENT IS STILL REFUSING TO BE CHANGED HE IS INCONTINENT OF URINE STATED THAT HE IS NOT ABLE TO TOLERATE HIS HEAD DOWN AND POSITION CHANGED ALL ATTEMPTS TO ENCOURAGE PATIENT TO ALL US TO CHANGE HIM TO PREVENT SKIN BREAK DOWN FAILED.THE CORPORATE AIRCRAFT MECHANIC WAS NOTIFIED AND SHE WENT IN AND ATTEMPTED TO CONVINNCE PATIENT TO NO AVAIL WILL CONTINUE TO OBSERVE AND PROVIDE COMFORT MUCH HE ALLOWS US.
[2022-01-27 18:32] LABS: BACTERIA,URINE R /HPF (NONE SEEN); SQUAMOUS EPITHELIAL CELL,UR FEW /HPF (NONE SEEN); WBC,URINE 0-3 /HPF (0-3)
--- NOTE | 2022-01-27 19:10 | NUR ---
RECEIVED PATIENT IN BED, WITH HEAD OF BED ELEVATED. EPISODES OF DIFFICULTY OF BREATHING. RECEIVING O2 AT 4LPM, SATURATING AT 96%. ON TELEMONITOR, SHOWING SINUS TACHYCARDIA WITH EPISODES OF PACS WITH HR OF 105BPM. IV ACCESS PATENT AND INTACT. PATIENT NOTED TO BE SOILED IN URINE, OFFERED TO CHANGE PATIENT, PATIENT REFUSED AND ADVISED THAT IT IS DIFFICULT TO BREATHE WHEN CHANGING POSITIONS. SAFETY PRECAUTIONS IN PLACE. MONITORED CLOSELY.
[2022-01-27 20:00] VITALS: BP 154/93
[2022-01-27] MEDS: ACETAMINOPHEN 325 MG TABLET PO PRN (21:56)
[2022-01-27] MEDS: TAMSULOSIN HCL 0.4 MG CAP.SR.24H PO SCH (21:57)
[2022-01-27] MEDS: DOCUSATE SODIUM 100 MG CAPSULE PO SCH (21:58)
--- NOTE | 2022-01-27 22:10 | NUR ---
NEW ORDERS FROM DR. LAMAS. FOR THORACENTESIS AND PROCEDURE CONSENT FOR TOMORROW. RECEIVED ORDER TO HOLD HEPARIN IN AM PRIOR TO PROCEDURE. PROCEDURE CONSENT SIGNED BY CLIENT, PATIENT UNDERSTOOD IMPORTANCE OF PROCEDURE.
[2022-01-28 00:30] VITALS: BP 157/78
--- NOTE | 2022-01-28 00:37 | NUR ---
PATIENT SLEEPING SOUNDLY. NO NOTED AT THIS TIME. PATIENT CLOSELY MONITORED.
--- NOTE | 2022-01-28 01:01 | NUR ---
PATIENT SHOWS NO SIGN OF AT THIS TIME. HEAD OF ELEVATED. OFFERED TO REPOSITION PATIENT AND CLEAN UP SOILED LINEN, PATIENT DECLINED DESPITE HEALTH TEACHING.
[2022-01-28] MEDS: ALPRAZOLAM 0.25 MG TABLET PO PRN (01:25)
[2022-01-28] MEDS: IPRATROPIUM BROMIDE 0.5 MG/2.5 ML NEBU NEB SCH ×4 (01:36→21:33)
[2022-01-28] MEDS: ALBUTEROL SULFATE 1.25 MG/3 ML NEBU NEB SCH ×4 (01:36→21:33)
[2022-01-28 04:30] VITALS: BP 146/86
[2022-01-28] MEDS: methylPREDNISolone SOD SUCC 125 MG/2 ML VIAL IV SCH ×3 (06:06→22:07)
[2022-01-28] MEDS: PANTOPRAZOLE SODIUM 40 MG TABLET.DR PO SCH (06:06)
--- NOTE | 2022-01-28 06:46 | NUR ---
PATIENT SLEPT INTERMITTENTLY THROUGH THE NIGHT, WITH FREQUENT COMPLAINS OF SOB. HEAD OF BED MAINTAINED UPRIGHT TO AID IN BREATHING. ON 4LPM O2 VIA NASAL CANNULA, SATURATING AT 99%. BREATHING TREATMENT WAS DONE BY RT NEEDED. ON TELEMONITOR, SHOWING EPISODES OF SINUS RHYTHM - TACHYCARDIA AND PACS. PATIENT VISIBILY SOILED IN URINE, OFFERED TO CHANGE PATIENT, PATIENT REFUSED DESPITE MULTIPLE ATTEMPTS TO EDUCATE. PT MADE AWARE OF PENDING THORACENTESIS, PT VERBALIZED UNDERSTANDING. ATTEMPTED TO REPOSITION PATIENT, PATIENT REFUSED. ATTEMPTED TO TAKE PHOTO OF PT'S SACRAL AREA, PATIENT REFUSED.SAFETY PRECAUTIONS MAINTAINED. ENDORSED TO DAY SHIFT.
--- NOTE | 2022-01-28 07:45 | NUR ---
RECEIVED PATIENT IN BED AWAKE ALERT AND ORIENTED NOTED SOME ABDOMINAL BREATHING WITH O2 AT 3L/M BY NASAL CANULA WITH SATS AT 94-95 PERCENT HOB UP PATIENT CONTINUES TO REFUSED TO BE CHANGED OR REPOSITIONED STATED FEELS UNCOMFORTABLE RESPIRATION MORAES WITH ANY MOVEMENT WILL CONTINUE TO EDUCATE PATIENT ON THE NEED AT LEAST BE CHANGED HE IS INCONTINENT OF URINE STATED NOT READY AT THIS TIME WILL CONTINUE TO OBSERVE AND ENCOURAGE TO BE COOPERATIVE WITH CARE.
[2022-01-28 08:38] LABS: HEMATOCRIT 47.3 % (36.7-47.1); MEAN CORPUSCULAR HEMOGLOBIN 28.1 uug (23.8-33.4); MEAN CORPUSCULAR VOLUME 85.7 fL (73.0-96.2); PLATELET COUNT (AUTO) 147 K/uL (152-348)
[2022-01-28 08:50] LABS: CARBON DIOXIDE 31 mmol/L (21-32); CHLORIDE 107 mmol/L (98-107); CREATININE 1.6 mg/dL (0.6-1.3); GLUCOSE 120 mg/dL (74-106); MAGNESIUM 2.8 mg/dL (1.8-2.4); PHOSPHOROUS 4.8 mg/dL (2.5-4.9); POTASSIUM 5.6 mmol/L (3.5-5.1); UREA NITROGEN, BLOOD 79 mg/dL (7-18)
[2022-01-28] MEDS: HEPARIN SODIUM,PORCINE 5,000 UNITS/ML VIAL SQ SCH ×2 (09:00→20:20)
--- NOTE | 2022-01-28 09:06 | NUR ---
DR ROQUE HERE TO SEE PATIENT WITH NEW ORDERS AND NOTED.
[2022-01-28] MEDS: FLUTICASONE/VILANTEROL 1 EACH BLST.W.DEV INH SCH (09:07)
[2022-01-28] MEDS: FINASTERIDE 5 MG TABLET PO SCH (09:07)
[2022-01-28] MEDS: GUAIFENESIN LA 600 MG TABLET.SA PO SCH ×2 (09:07→20:12)
[2022-01-28] MEDS: GLUCERNA SHAKE 237 ML CAN PO SCH ×2 (09:08→17:00)
--- NOTE | 2022-01-28 09:09 | NUR ---
PATIENT IS FOR THORACENTESIS TODAY HEPARIN HELD AT THIS TIME TO PREVENT BLEEDING
[2022-01-28] MEDS ORDERED: DEXTROSE 50% 50 ML DISP.SYRIN IV ONE (11:30)
[2022-01-28] MEDS ORDERED: INSULIN REGULAR, HUMAN 300 UNIT/3 ML VIAL IV ONE (11:30)
--- NOTE | 2022-01-28 11:30 | NUR ---
THORACENTESIS COMPLETED ORDERED AND 1500 REMOVED PATIENT TOLERATED PROCEDURE WELL.
[2022-01-28 11:56] VITALS: BP 150/77
[2022-01-28] MEDS: MORPHINE SULFATE 2 MG/1 ML DISP.SYRIN IV PRN (12:00)
--- NOTE | 2022-01-28 12:05 | NUR ---
PATIENT C/O HAS PAIN FROM THE THORACENTESIS MEDICATED WITH MORPHINE ORDERED WILL OBSERVE PATIENT CONTINUED TO REFUSE TO BE CHANGED REMAIN INCONTINENT AT THIS TIME.
--- NOTE | 2022-01-28 12:39 | NUR ---
BLOOD SUGAR CHECKED AT THIS TIME AND ITS 142
--- NOTE | 2022-01-28 13:45 | NUR ---
PATIENTS NANCY HERE AND STATED THAT PATIENTS PRIVATE PULMONARY DOCTOR WANTS PATIENT TRANSFERED TO [facility] FOR CONTINUING CARE DAISHA SIGNAL TECHNICIAN NOTIFIED AND HE IS IN THE PATIENTS ROOMM SPEAKING WITH HER AT THIS TIME
[2022-01-28] MEDS: ACETAMINOPHEN 325 MG TABLET PO PRN ×2 (13:47→20:05)
--- NOTE | 2022-01-28 16:00 | NUR ---
PATIENT WAS FINALLY CHANGED WITH MUCH DIFFICULTY WHOLE BED LINEN GOWN ETC STATED FEELS MORE COMFORTABLE HERE AT THE BEDSIDE O2 REMAINS AT 3L/M WITH SATS AT 94-95 PERCENT WILL CONTINUE TO OBSERVE.
[2022-01-28 16:04] VITALS: BP 141/69
--- NOTE | 2022-01-28 18:00 | NUR ---
STILL AWAITING FOR [facility] TO ACCEPT PATIENT ACUTE [facility] ACUTE HOSPITAL PER THE PUBLICATIONS WRITER INFO/INQUIRY TO TRANSFER HAS BEEN INITIATED SO IT WILL BE UP TO [facility] TO CALL WHEN BED IS AVAILABLE PATIENTS NANCY HERE AND AWARE.
[2022-01-28] MEDS ORDERED: ACETYLCYSTEINE 20% 800 MG/4 ML VIAL NEB SCH (19:30)
--- NOTE | 2022-01-28 19:35 | NUR ---
Received patient in bed, hob elevated, on oxygen 3 liters NC, sat 97%, tele monitor sinus rhythm, cont on HHN tx plus solu medrol for copd exacerbation, kept clean dry and comfortable, complain of pain/discomfort request for tylenol will medicate as ordered, patient calm at this time, cont to monitor.
[2022-01-28] MEDS: DOCUSATE SODIUM 100 MG CAPSULE PO SCH (20:06)
[2022-01-28] MEDS: TAMSULOSIN HCL 0.4 MG CAP.SR.24H PO SCH (20:06)
[2022-01-28 20:09] VITALS: BP 136/79
[2022-01-28] MEDS: ACETYLCYSTEINE 20% 800 MG/4 ML VIAL NEB SCH (21:33)
[2022-01-29] VITALS (7 sets, daily range): BP systolic 109–152; BP diastolic 50–78
[2022-01-29] MEDS: IPRATROPIUM BROMIDE 0.5 MG/2.5 ML NEBU NEB SCH ×4 (01:20→19:33)
[2022-01-29] MEDS: ALBUTEROL SULFATE 1.25 MG/3 ML NEBU NEB SCH ×4 (01:20→19:33)
--- NOTE | 2022-01-29 01:20 | NUR ---
Patient refused treatment, nurse aware. No SOB noted
[2022-01-29] MEDS: ACETAMINOPHEN 325 MG TABLET PO PRN ×2 (03:27→15:34)
[2022-01-29] MEDS: methylPREDNISolone SOD SUCC 125 MG/2 ML VIAL IV SCH ×3 (05:46→21:22)
--- NOTE | 2022-01-29 06:25 | NUR ---
Patient awake during the night, and now sleeping, refused to be change, linen and diaper, patient refused to change also at 2100, 0030,0230, continue to reorient patient the need to follow instruction, but refused, v/s wnl, saturation wnl, given Tylenol 650mg po for abdominal pain, then went back to sleep, cont to offer diaper change.
[2022-01-29 06:45] LABS: HEMATOCRIT 40.7 % (36.7-47.1); MEAN CORPUSCULAR VOLUME 84.9 fL (73.0-96.2); PLATELET COUNT (AUTO) 107 K/uL (152-348)
[2022-01-29] MEDS: PANTOPRAZOLE SODIUM 40 MG TABLET.DR PO SCH (07:05)
[2022-01-29 07:12] LABS: CARBON DIOXIDE 27 mmol/L (21-32); CHLORIDE 107 mmol/L (98-107); CREATININE 1.5 mg/dL (0.6-1.3); GLUCOSE 129 mg/dL (74-106); MAGNESIUM 2.7 mg/dL (1.8-2.4); PHOSPHOROUS 4.3 mg/dL (2.5-4.9); POTASSIUM 5.5 mmol/L (3.5-5.1)
[2022-01-29 07:15] LABS: UREA NITROGEN, BLOOD 82 mg/dL (7-18)
[2022-01-29] MEDS: ACETYLCYSTEINE 20% 800 MG/4 ML VIAL NEB SCH ×2 (08:14→19:33)
[2022-01-29] MEDS ORDERED: DEXTROSE 50% 50 ML DISP.SYRIN IV ONE (09:00)
[2022-01-29] MEDS ORDERED: INSULIN REGULAR, HUMAN 300 UNIT/3 ML VIAL SQ ONE (09:00)
[2022-01-29] MEDS ORDERED: INSULIN REGULAR, HUMAN 300 UNIT/3 ML VIAL IV ONE (09:00)
[2022-01-29] MEDS: GLUCERNA SHAKE 237 ML CAN PO SCH ×3 (09:15→20:35)
[2022-01-29] MEDS: HEPARIN SODIUM,PORCINE 5,000 UNITS/ML VIAL SQ SCH ×2 (09:30→20:36)
[2022-01-29] MEDS: FINASTERIDE 5 MG TABLET PO SCH (09:30)
[2022-01-29] MEDS: GUAIFENESIN LA 600 MG TABLET.SA PO SCH ×2 (09:30→20:35)
[2022-01-29] MEDS: FLUTICASONE/VILANTEROL 1 EACH BLST.W.DEV INH SCH (09:41)
[2022-01-29] MEDS: DOCUSATE SODIUM 100 MG CAPSULE PO SCH (20:35)
[2022-01-29] MEDS: TAMSULOSIN HCL 0.4 MG CAP.SR.24H PO SCH (20:35)
[2022-01-30] VITALS: BP 113/58
[2022-01-30] MEDS: ALBUTEROL SULFATE 1.25 MG/3 ML NEBU NEB PRN (00:03)
[2022-01-30] MEDS: [UNRECOGNIZED DRUG - OTHER] INH PRN ×2 (00:23→06:22)
[2022-01-30] MEDS: ALBUTEROL INH PRN ×2 (00:23→06:22)
[2022-01-30] MEDS: IPRATROPIUM BROMIDE 0.5 MG/2.5 ML NEBU NEB SCH ×4 (00:39→20:20)
[2022-01-30] MEDS: ALBUTEROL SULFATE 1.25 MG/3 ML NEBU NEB SCH ×4 (00:39→20:20)
[2022-01-30 04:06] VITALS: BP 136/77
--- NOTE | 2022-01-30 05:58 | NUR ---
Pt slept throughout the night. No distress noted. Tolerating 3L NC. IV site intact. Tolerated all medications given. Cleaned and repositioned. Safety maintained. Will endorse to day shift.
[2022-01-30] MEDS: PANTOPRAZOLE SODIUM 40 MG TABLET.DR PO SCH (06:20)
[2022-01-30] MEDS: methylPREDNISolone SOD SUCC 125 MG/2 ML VIAL IV SCH (06:21)
--- NOTE | 2022-01-30 06:31 | NUR ---
Pt changed and given bed bath around 0200H, refused to be changed again for this morning.
[2022-01-30 06:43] LABS: HEMATOCRIT 40.8 % (36.7-47.1); MEAN CORPUSCULAR HEMOGLOBIN 27.8 uug (23.8-33.4); MEAN CORPUSCULAR VOLUME 83.7 fL (73.0-96.2); PLATELET COUNT (AUTO) 97 K/uL (152-348)
[2022-01-30 07:21] LABS: CARBON DIOXIDE 31 mmol/L (21-32); CHLORIDE 104 mmol/L (98-107); CREATININE 1.5 mg/dL (0.6-1.3); GLUCOSE 139 mg/dL (74-106); MAGNESIUM 2.6 mg/dL (1.8-2.4); PHOSPHOROUS 3.8 mg/dL (2.5-4.9); POTASSIUM 5.7 mmol/L (3.5-5.1); UREA NITROGEN, BLOOD 71 mg/dL (7-18)
[2022-01-30] MEDS: ACETYLCYSTEINE 20% 800 MG/4 ML VIAL NEB SCH ×2 (08:17→20:20)
[2022-01-30] MEDS: GUAIFENESIN LA 600 MG TABLET.SA PO SCH ×2 (09:19→21:07)
[2022-01-30] MEDS: FINASTERIDE 5 MG TABLET PO SCH (09:19)
[2022-01-30] MEDS: HEPARIN SODIUM,PORCINE 5,000 UNITS/ML VIAL SQ SCH ×2 (09:24→21:00)
[2022-01-30] MEDS: FLUTICASONE/VILANTEROL 1 EACH BLST.W.DEV INH SCH (09:30)
[2022-01-30] MEDS ORDERED: DEXTROSE 50% 50 ML DISP.SYRIN IV ONE (10:15)
[2022-01-30] MEDS ORDERED: INSULIN REGULAR, HUMAN 300 UNIT/3 ML VIAL IV ONE (10:15)
[2022-01-30] MEDS: GLUCERNA SHAKE 237 ML CAN PO SCH ×3 (11:20→21:28)
[2022-01-30 11:31] VITALS: BP 137/62
[2022-01-30 15:15] VITALS: BP 129/72
[2022-01-30 20:00] VITALS: BP 131/71
[2022-01-30] MEDS: DOCUSATE SODIUM 100 MG CAPSULE PO SCH (21:00)
[2022-01-30] MEDS: TAMSULOSIN HCL 0.4 MG CAP.SR.24H PO SCH (21:06)
[2022-01-30] MEDS: methylPREDNISolone SOD SUCC 40 MG/ML VIAL IV SCH (21:07)
--- NOTE | 2022-01-30 22:12 | NUR ---
Patient alert and able to make needs known, continuos Ox at 3lpm via NC saturating at 96%.Patient stated he doesnt want to be bother and changed.Able to use urinal. Refused colace at this time and heparin hold for now per MD.Patient requesting for cough med.Mucinex given as ordered.Dr claros made aware with new order Joshua Hutchins PRn.Patient made aware.Call light with in reach.Will continue to monitor.
[2022-01-31 00:33] VITALS: BP 134/70
[2022-01-31] MEDS: ALBUTEROL SULFATE 1.25 MG/3 ML NEBU NEB SCH ×4 (01:05→19:59)
[2022-01-31] MEDS: IPRATROPIUM BROMIDE 0.5 MG/2.5 ML NEBU NEB SCH ×4 (01:05→19:59)
[2022-01-31 04:00] VITALS: BP 130/70
[2022-01-31] MEDS: PANTOPRAZOLE SODIUM 40 MG TABLET.DR PO SCH (06:03)
[2022-01-31 06:35] LABS: HEMATOCRIT 40.9 % (36.7-47.1); MEAN CORPUSCULAR HEMOGLOBIN 27.6 uug (23.8-33.4); MEAN CORPUSCULAR VOLUME 83.8 fL (73.0-96.2); PLATELET COUNT (AUTO) 103 K/uL (152-348)
[2022-01-31 06:53] LABS: CARBON DIOXIDE 28 mmol/L (21-32); CHLORIDE 105 mmol/L (98-107); CREATININE 1.7 mg/dL (0.6-1.3); GLUCOSE 125 mg/dL (74-106); MAGNESIUM 2.5 mg/dL (1.8-2.4); PHOSPHOROUS 3.4 mg/dL (2.5-4.9); UREA NITROGEN, BLOOD 73 mg/dL (7-18)
[2022-01-31 07:02] LABS: POTASSIUM 6.2 mmol/L (3.5-5.1)
--- NOTE | 2022-01-31 07:10 | NUR ---
Relayed k+ result 6.[address] claros.Awaiting response. Endorse to oncoming shift to follow up.
--- NOTE | 2022-01-31 08:00 | NUR ---
AWAKE ALERT AND VERBALLY RESPONSIVE, PLEASANT AND COOPERATIVE. ON 3L NC SATURATING 93-95%. RECEIVING BREATHING TX AND SOLU MEDROLSR ON MONITO
[2022-01-31] MEDS: ACETYLCYSTEINE 20% 800 MG/4 ML VIAL NEB SCH ×2 (08:39→19:59)
[2022-01-31] MEDS: methylPREDNISolone SOD SUCC 40 MG/ML VIAL IV SCH ×2 (09:06→21:33)
[2022-01-31] MEDS: FINASTERIDE 5 MG TABLET PO SCH (09:07)
[2022-01-31] MEDS: GUAIFENESIN LA 600 MG TABLET.SA PO SCH ×2 (09:07→21:35)
[2022-01-31] MEDS: HEPARIN SODIUM,PORCINE 5,000 UNITS/ML VIAL SQ SCH ×2 (09:07→21:44)
[2022-01-31] MEDS: FLUTICASONE/VILANTEROL 1 EACH BLST.W.DEV INH SCH (09:07)
[2022-01-31] MEDS: GLUCERNA SHAKE 237 ML CAN PO SCH ×3 (09:08→21:32)
[2022-01-31] MEDS ORDERED: SODIUM POLYSTYRENE SULFONATE 15 G/60 ML LIQUID UDC PO ONE (09:30)
[2022-01-31] MEDS ORDERED: FUROSEMIDE 40 MG/4 ML VIAL IV ONE (09:30)
[2022-01-31 11:30] VITALS: BP 157/76
[2022-01-31 11:35] VITALS: BP 101/65
--- NOTE | 2022-01-31 12:00 | NUR ---
NO ACUTE CHANGE FROM MORNING ASSESSMENT
[2022-01-31 15:24] VITALS: BP 118/78
--- NOTE | 2022-01-31 16:51 | NUR ---
RESTING COMFORTABLY WITH 3L O2 VIA NC SATURATING 95%, WHEEZING ON AND OFF, CONTINUE WITH HHN BY RT AND SOLU MEDROL. SR WITH PAC'S ON MONITOR
[2022-01-31 20:59] VITALS: BP 121/60
[2022-01-31] MEDS: TAMSULOSIN HCL 0.4 MG CAP.SR.24H PO SCH (21:33)
[2022-01-31] MEDS: DOCUSATE SODIUM 100 MG CAPSULE PO SCH (22:12)
[2022-01-31] MEDS: ACETAMINOPHEN 325 MG TABLET PO PRN (22:23)
[2022-02-01] MEDS: IPRATROPIUM BROMIDE 0.5 MG/2.5 ML NEBU NEB SCH ×4 (01:29→19:05)
[2022-02-01] MEDS: ALBUTEROL SULFATE 1.25 MG/3 ML NEBU NEB SCH ×4 (01:29→19:05)
[2022-02-01 04:45] VITALS: BP 114/42
[2022-02-01] MEDS: PANTOPRAZOLE SODIUM 40 MG TABLET.DR PO SCH (06:17)
--- NOTE | 2022-02-01 06:57 | NUR ---
Patient con't on O2 at 3LPM at 96 % .Kept HOB elevated. Refused diaper change last night and to be repositioned. Risk and benefit explained. Patient able to follow commands. Pericare and wound tx rendered.Repositioned patient.Will continue to reinforced teaching. v/s wnl.Will endorse to oncoming shift.
[2022-02-01] MEDS: ACETYLCYSTEINE 20% 800 MG/4 ML VIAL NEB SCH ×2 (07:37→19:05)
[2022-02-01 07:49] LABS: HEMATOCRIT 41.8 % (36.7-47.1); MEAN CORPUSCULAR HEMOGLOBIN 27.7 uug (23.8-33.4); MEAN CORPUSCULAR VOLUME 83.5 fL (73.0-96.2); PLATELET COUNT (AUTO) 106 K/uL (152-348)
--- NOTE | 2022-02-01 08:00 | NUR ---
AWAKE ALERT AND VERBALLY RESPONSIVE NO SS OF PAIN OR DISTRESS WITH 3L NC SATURATING 95%. SR ON MONITOR
[2022-02-01 08:01] LABS: CARBON DIOXIDE 32 mmol/L (21-32); CHLORIDE 104 mmol/L (98-107); CREATININE 1.6 mg/dL (0.6-1.3); GLUCOSE 146 mg/dL (74-106); MAGNESIUM 2.6 mg/dL (1.8-2.4); PHOSPHOROUS 3.7 mg/dL (2.5-4.9); POTASSIUM 5.6 mmol/L (3.5-5.1); UREA NITROGEN, BLOOD 77 mg/dL (7-18)
[2022-02-01] MEDS: methylPREDNISolone SOD SUCC 40 MG/ML VIAL IV SCH ×2 (08:33→20:43)
[2022-02-01] MEDS: GUAIFENESIN LA 600 MG TABLET.SA PO SCH ×2 (08:33→20:43)
[2022-02-01] MEDS: FINASTERIDE 5 MG TABLET PO SCH (08:33)
[2022-02-01] MEDS: HEPARIN SODIUM,PORCINE 5,000 UNITS/ML VIAL SQ SCH ×2 (08:34→20:47)
[2022-02-01] MEDS: FLUTICASONE/VILANTEROL 1 EACH BLST.W.DEV INH SCH (08:35)
[2022-02-01] MEDS: GLUCERNA SHAKE 237 ML CAN PO SCH ×3 (08:35→20:49)
[2022-02-01 10:26] LABS: *CHLORIDE RNDM,URINE 36 mmol/L (100-250); *POTASSIUM RNDM,URINE 28 mmol/L (25-125)
[2022-02-01 11:23] VITALS: BP 130/69
--- NOTE | 2022-02-01 12:25 | NUR ---
SEEN BY HOSPITALIST FOR FOLLOW-UP, CONTINUE O2 AT 3L NC SATURATING 94% SR ON MONITOR
[2022-02-01 15:56] VITALS: BP 114/58
[2022-02-01] MEDS ORDERED: SODIUM POLYSTYRENE SULFONATE 15 G/60 ML LIQUID UDC PO SCH ×2 (16:00→18:00)
--- NOTE | 2022-02-01 18:50 | NUR ---
DR TRIANA IN AND MADE AWARE OF K 5.6 WITH ORDERS
--- NOTE | 2022-02-01 19:30 | NUR ---
Received pt awake, alert and oriented x4. Pt in no acute distress. Pt heart rate on sinus rhythm .Pt on 3l nasal cannula. Safety and comfort provided. Will continue to monitor.
[2022-02-01 20:22] VITALS: BP 100/61
[2022-02-01] MEDS: TAMSULOSIN HCL 0.4 MG CAP.SR.24H PO SCH (20:43)
[2022-02-01] MEDS: DOCUSATE SODIUM 100 MG CAPSULE PO SCH (20:49)
--- NOTE | 2022-02-01 21:00 | NUR ---
Pt offered to change his diaper, fix his bed and turned him. Pt refused and doesn't want to be moved. Will continue to monitor.
--- NOTE | 2022-02-01 22:00 | NUR ---
Pt refused his Colace medication. Colace medication was returned in the omnicel.
[2022-02-01] MEDS: SODIUM POLYSTYRENE SULFONATE 15 G/60 ML LIQUID UDC PO SCH (23:03)
--- NOTE | 2022-02-02 00:30 | NUR ---
Pt offered to be repositioned and change his diaper. Pt refused. Pt educated regarding turning to prevent pressure ulcer. Pt understand and doesn't want to be moved and change. Will continue to monitor.
[2022-02-02 00:47] VITALS: BP 125/69
[2022-02-02] MEDS: ALBUTEROL SULFATE 1.25 MG/3 ML NEBU NEB SCH ×4 (00:58→19:35)
[2022-02-02] MEDS: IPRATROPIUM BROMIDE 0.5 MG/2.5 ML NEBU NEB SCH ×4 (00:58→19:35)
[2022-02-02] MEDS: GUAIFENESIN/DEXTROMETHORPHAN 5 ML UDC PO PRN (01:31)
[2022-02-02 04:37] VITALS: BP 126/64
--- NOTE | 2022-02-02 06:14 | NUR ---
Pt slept intermittently. Pt in no acute distress. Iv intact.Pt on sinus rhythm. Prescribed medication given and pt tolerated it well.Pt on 3l nasal cannula. Safety and comfort provided. Will endorse to incoming nurse for continuity of care.
[2022-02-02] MEDS: PANTOPRAZOLE SODIUM 40 MG TABLET.DR PO SCH (06:17)
--- NOTE | 2022-02-02 06:23 | NUR ---
Pt in no acute distress. Pt stating he didn't get enough sleep. Pt offered numerous times to change pt diaper and repositioned the pt. Pt educated about the risk and benefits of changing position on bed to prevent pressure ulcer but pt still refused. Pt stated he doesn't want to be moved. Pt stable and in no acute distress.Pt stable. Will endorse to incoming nurse for continuity of care.'
[2022-02-02 06:42] LABS: HEMATOCRIT 38.1 % (36.7-47.1); MEAN CORPUSCULAR HEMOGLOBIN 27.6 uug (23.8-33.4); MEAN CORPUSCULAR VOLUME 82.8 fL (73.0-96.2); PLATELET COUNT (AUTO) 102 K/uL (152-348)
[2022-02-02 07:08] LABS: CARBON DIOXIDE 33 mmol/L (21-32); CHLORIDE 102 mmol/L (98-107); CREATININE 1.5 mg/dL (0.6-1.3); GLUCOSE 135 mg/dL (74-106); MAGNESIUM 2.5 mg/dL (1.8-2.4); PHOSPHOROUS 3.6 mg/dL (2.5-4.9); POTASSIUM 5.5 mmol/L (3.5-5.1); UREA NITROGEN, BLOOD 69 mg/dL (7-18)
[2022-02-02] MEDS: ACETYLCYSTEINE 20% 800 MG/4 ML VIAL NEB SCH ×2 (07:56→19:35)
[2022-02-02] MEDS: FINASTERIDE 5 MG TABLET PO SCH (08:46)
[2022-02-02] MEDS: methylPREDNISolone SOD SUCC 40 MG/ML VIAL IV SCH ×2 (08:46→20:40)
[2022-02-02] MEDS: GUAIFENESIN LA 600 MG TABLET.SA PO SCH ×2 (08:46→20:39)
[2022-02-02] MEDS: SODIUM POLYSTYRENE SULFONATE 15 G/60 ML LIQUID UDC PO SCH ×2 (08:47→16:24)
[2022-02-02] MEDS: HEPARIN SODIUM,PORCINE 5,000 UNITS/ML VIAL SQ SCH ×2 (08:52→20:41)
[2022-02-02] MEDS: FLUTICASONE/VILANTEROL 1 EACH BLST.W.DEV INH SCH (08:53)
--- NOTE | 2022-02-02 09:00 | NUR ---
ALERT ORIENTED AND VERBALLY RESPONSIVE PATIENT IS ON O2 AT 3L/M BY N/C.PATIENT IS COMPLIANT BUT IS NON COOPERATIVE WITH CARE REFUSES TO BE CHANGED OR REPOSITIONED ALL ATTEMPTS AND EXPLAINATIONS HAS FAILED WILL CONTINUE TO ENCOURAGE PATIENT WILL CONTINUE TO OBSERVE.
[2022-02-02] MEDS: GLUCERNA SHAKE 237 ML CAN PO SCH ×3 (10:00→20:00)
[2022-02-02 11:48] VITALS: BP 147/77
--- NOTE | 2022-02-02 13:26 | NUR ---
WOUND CARE CONSULT: PT REFUSED SKIN ASSESSMENT. REVIEWED CHART, NURSING DOCUMENTATION AND PHOTOS WHICH INDICATE RASH AND SACRAL INTACT DEEP TISSUE INJURY PRESENT ON ADMISSION. RECOMMENDATIONS MADE FOR SKIN PROTECTION. DISCUSSED WITH NURSING STAFF. MD IN AGREEMENT WITH PLAN OF CARE.
[2022-02-02] MEDS ORDERED: REMEDY ESSENTIAL ZINC PASTE 113 GM TOP PRN (13:30)
[2022-02-02 16:00] VITALS: BP 142/74
[2022-02-02] MEDS: CLOTRIMAZOLE 1% CREAM 30 GM TUBE TOP SCH (16:24)
[2022-02-02] MEDS: ACETAMINOPHEN 325 MG TABLET PO PRN ×2 (16:30→23:15)
--- NOTE | 2022-02-02 18:57 | NUR ---
PATIENT WAS COMPLIANT WITH CARE ONCE THIS SHIFT PER THE ASSIGNED TAX FORM PREPARER O2 IN PROGRESS WITH NO SOB NOT IN DISTRESS AT THIS TIME.
--- NOTE | 2022-02-02 18:58 | NUR ---
NOTED PATIENTS IV SITE IS LEAKING AND MULTIPLE ATTEMPTS FAILED MD AWARE WITH ORDER TO INSERT A MIDLINE THE LAB AID AWARE.WILL CONTACT THE MID LINE NURSE.
--- NOTE | 2022-02-02 19:30 | NUR ---
Received pt awake, alert and orientedx4. Pt in no acute distress. Iv intact. Pt on 3L nasal cannula. Safety and comfort provided. Will continue to monitor.
[2022-02-02 20:00] VITALS: BP 123/65
[2022-02-02] MEDS: TAMSULOSIN HCL 0.4 MG CAP.SR.24H PO SCH (20:39)
[2022-02-02] MEDS: DOCUSATE SODIUM 100 MG CAPSULE PO SCH (20:40)
[2022-02-02] MEDS: REMEDY ESSENTIAL ZINC PASTE 113 GM TOP SCH (20:42)
[2022-02-02] MEDS ORDERED: SODIUM POLYSTYRENE SULFONATE 15 G/60 ML LIQUID UDC PO SCH (23:00)
[2022-02-02] MEDS: TEMAZEPAM 15 MG CAPSULE PO PRN (23:11)
--- NOTE | 2022-02-03 | NUR ---
Pt offered again to be repositioned and change his diaper. Pt refused. Pt educated regarding turning to prevent pressure ulcer. Pt understand and doesn't want to be moved and change. Will continue to monitor.
[2022-02-03] MEDS: IPRATROPIUM BROMIDE 0.5 MG/2.5 ML NEBU NEB SCH ×4 (01:17→19:18)
[2022-02-03] MEDS: ALBUTEROL SULFATE 1.25 MG/3 ML NEBU NEB SCH ×4 (01:17→19:18)
[2022-02-03 04:00] VITALS: BP 122/71
--- NOTE | 2022-02-03 04:32 | NUR ---
Restoril 15 mg prn given to pt as per pt request at 2311H for sleep. Pt was given Tylenol 650 mg prn at 2315H for generalized pain. Pt tolerated it well. Will continue to monitor.
[2022-02-03 04:54] VITALS: BP_SYST 116; BP_SYST 132; BP_SYST 140; BP_DIAS 67; BP_DIAS 75; BP_DIAS 77
--- NOTE | 2022-02-03 06:34 | NUR ---
Pt slept intermittently. Pt in no acute distress. Iv intact and patent. Pt on sinus rhythm . Pt on 3l nasal cannula. Prescribed medication given and pt tolerated it well. Pt was repositioned and turned. Pt change his diaper. Pt tylenol 650 mg prn given. Safety and comfort provided. Will continue to monitor.
[2022-02-03] MEDS: ACETAMINOPHEN 325 MG TABLET PO PRN ×2 (06:40→22:37)
[2022-02-03] MEDS: PANTOPRAZOLE SODIUM 40 MG TABLET.DR PO SCH (06:40)
[2022-02-03] MEDS: ACETYLCYSTEINE 20% 800 MG/4 ML VIAL NEB SCH ×2 (07:10→19:19)
[2022-02-03 07:34] LABS: HEMATOCRIT 39.3 % (36.7-47.1); MEAN CORPUSCULAR VOLUME 83.9 fL (73.0-96.2); PLATELET COUNT (AUTO) 132 K/uL (152-348)
[2022-02-03 07:54] LABS: CARBON DIOXIDE 33 mmol/L (21-32); CHLORIDE 102 mmol/L (98-107); CREATININE 1.5 mg/dL (0.6-1.3); GLUCOSE 155 mg/dL (74-106); MAGNESIUM 2.3 mg/dL (1.8-2.4); POTASSIUM 5.6 mmol/L (3.5-5.1); UREA NITROGEN, BLOOD 61 mg/dL (7-18)
--- NOTE | 2022-02-03 09:00 | NUR ---
DR ROQUE HERE SEEN PATIENT WITH NO NEW ORDERS AT THIS TIME PATIENT IS ALERT AND ORIENTED WITH O2 AT 3L/M BY NASAL CANULA WITH SOBE CALL LIGHTS AND PERSONAL BELONGINGS ARE WITHIN ESY REACH WILL CONTINUE TO OBSERVE.
[2022-02-03] MEDS: GUAIFENESIN LA 600 MG TABLET.SA PO SCH ×2 (10:25→20:17)
[2022-02-03] MEDS: FINASTERIDE 5 MG TABLET PO SCH (10:25)
[2022-02-03] MEDS: methylPREDNISolone SOD SUCC 40 MG/ML VIAL IV SCH ×2 (10:25→20:17)
[2022-02-03] MEDS: HEPARIN SODIUM,PORCINE 5,000 UNITS/ML VIAL SQ SCH ×2 (10:26→20:20)
[2022-02-03] MEDS: SODIUM POLYSTYRENE SULFONATE 15 G/60 ML LIQUID UDC PO SCH ×2 (10:28→17:46)
[2022-02-03] MEDS: REMEDY ESSENTIAL ZINC PASTE 113 GM TOP SCH ×2 (10:29→20:21)
[2022-02-03] MEDS: CLOTRIMAZOLE 1% CREAM 30 GM TUBE TOP SCH ×2 (10:29→17:46)
[2022-02-03] MEDS: FLUTICASONE/VILANTEROL 1 EACH BLST.W.DEV INH SCH (10:30)
[2022-02-03] MEDS: GLUCERNA SHAKE 237 ML CAN PO SCH ×3 (10:30→20:36)
[2022-02-03 11:39] VITALS: BP 124/64
[2022-02-03] MEDS ORDERED: SODIUM POLYSTYRENE SULFONATE 15 G/60 ML LIQUID UDC PO ONE (13:00)
--- NOTE | 2022-02-03 14:00 | NUR ---
SEEN BY JAVAD WITH NEW ORDERS AND NOTED.
[2022-02-03 15:54] VITALS: BP 146/74
--- NOTE | 2022-02-03 16:00 | NUR ---
PHYSICAL THERAPY HERE SEEN PATIENT AND HE WAS ABLE TO SEAT AT THE EDGE OF THE BED AND BACK TO BED ENDURANCE IS FAIR AT THIS TIME.
--- NOTE | 2022-02-03 19:30 | NUR ---
Received pt awake, alert and orientedx3. Pt in no acute distress. Iv intact. Pt on 3L nasal cannula. Safety and comfort provided. Will continue to monitor.
[2022-02-03 20:00] VITALS: BP 137/73
[2022-02-03] MEDS: TAMSULOSIN HCL 0.4 MG CAP.SR.24H PO SCH (20:17)
[2022-02-03] MEDS: DOCUSATE SODIUM 100 MG CAPSULE PO SCH (20:17)
[2022-02-03] MEDS: TEMAZEPAM 15 MG CAPSULE PO PRN (22:37)
--- NOTE | 2022-02-03 23:50 | NUR ---
at 2237H Restoril prn given to pt as per pt request for sleep and Tylenol 650 mg prn given to ptfor generalized pain. Pt tolerated it well. Will continue to monitor.
[2022-02-04 00:50] VITALS: BP 128/63
[2022-02-04] MEDS: IPRATROPIUM BROMIDE 0.5 MG/2.5 ML NEBU NEB SCH ×4 (01:07→20:41)
[2022-02-04] MEDS: ALBUTEROL SULFATE 1.25 MG/3 ML NEBU NEB SCH ×4 (01:07→20:42)
[2022-02-04] MEDS: ALPRAZOLAM 0.25 MG TABLET PO PRN (02:42)
[2022-02-04] MEDS: GUAIFENESIN/DEXTROMETHORPHAN 5 ML UDC PO PRN (03:28)
[2022-02-04 04:00] VITALS: BP 136/69
[2022-02-04] MEDS: ACETAMINOPHEN 325 MG TABLET PO PRN ×2 (04:46→15:31)
--- NOTE | 2022-02-04 04:48 | NUR ---
Pt given Xanax .25mg prn for anxiety. Pt tolerated it well and after 30 minutes pt is more calm. Pt tolerated it well. Pt given Robitussin DM 10 ml at 0328H for cough. At 0446H Tylenol 650 mg prn given to pt for generalized pain as per pt request. Pt in no acute distress and will continue to monitor.
--- NOTE | 2022-02-04 06:08 | NUR ---
Pt turned and repositioned. Pt dressing change.
--- NOTE | 2022-02-04 06:08 | NUR ---
Pt slept intermittently. Pt in no acute distress. Iv intact. Pt is afebrile. Pt on 3l nasal Cannula. Prescribed medication given and pt tolerated it well. Safety and comfort provided. Will endorse to incoming nurse for continuity of care.
[2022-02-04] MEDS: PANTOPRAZOLE SODIUM 40 MG TABLET.DR PO SCH (06:31)
[2022-02-04] MEDS: ACETYLCYSTEINE 20% 800 MG/4 ML VIAL NEB SCH ×2 (07:54→20:41)
[2022-02-04] MEDS: GUAIFENESIN LA 600 MG TABLET.SA PO SCH ×2 (08:46→20:51)
[2022-02-04] MEDS: methylPREDNISolone SOD SUCC 40 MG/ML VIAL IV SCH ×4 (08:46→22:03)
[2022-02-04] MEDS: FLUTICASONE/VILANTEROL 1 EACH BLST.W.DEV INH SCH (08:46)
[2022-02-04] MEDS: FINASTERIDE 5 MG TABLET PO SCH (08:46)
[2022-02-04] MEDS: REMEDY ESSENTIAL ZINC PASTE 113 GM TOP SCH ×2 (08:46→20:58)
[2022-02-04] MEDS: CLOTRIMAZOLE 1% CREAM 30 GM TUBE TOP SCH ×2 (08:47→16:18)
--- NOTE | 2022-02-04 08:52 | NUR ---
WOUND CARE CONSULT: ATTEMPTED TO SEE PT FOR SKIN ASSESSMENT BUT PT REFUSED. DISCUSSED IMPORTANCE OF ASSESSING SKIN FOR PROPER TREATMENT BUT PT REFUSED. DISCUSSED SKIN PROTECTION WITH NURSING STAFF. PER ADMISSION PHOTO. SACRAL DEEP TISSUE INJURY WAS NOTED TO BE PRESENT ON ADMISSION. MD IN AGREEMENT WITH PLAN OF CARE.
[2022-02-04] MEDS: HEPARIN SODIUM,PORCINE 5,000 UNITS/ML VIAL SQ SCH ×2 (09:00→20:51)
--- NOTE | 2022-02-04 09:00 | NUR ---
Unable to provide Solumedrol IV. Patient midline to left upper arm is non patent. Will call for new Midline insertion.
[2022-02-04] MEDS: GLUCERNA SHAKE 237 ML CAN PO SCH ×3 (09:30→20:00)
[2022-02-04 11:35] VITALS: BP 141/78
[2022-02-04 12:19] LABS: HEMATOCRIT 41.3 % (36.7-47.1); MEAN CORPUSCULAR HEMOGLOBIN 27.9 uug (23.8-33.4); MEAN CORPUSCULAR VOLUME 84.1 fL (73.0-96.2); PLATELET COUNT (AUTO) 139 K/uL (152-348)
[2022-02-04 12:20] LABS: CARBON DIOXIDE 32 mmol/L (21-32); CHLORIDE 102 mmol/L (98-107); CREATININE 1.4 mg/dL (0.6-1.3); GLUCOSE 98 mg/dL (74-106); UREA NITROGEN, BLOOD 56 mg/dL (7-18)
--- NOTE | 2022-02-04 15:23 | NUR ---
DK glass made aware patient had missed his Solumedrol dose this am due to no Venous access. Able to access left AC at this time. DK Glass with new orders to administer solumedrol now and adjust times.
[2022-02-04 15:54] VITALS: BP 133/64
[2022-02-04 20:00] VITALS: BP 145/77
[2022-02-04] MEDS: TEMAZEPAM 15 MG CAPSULE PO PRN (20:52)
[2022-02-04] MEDS: TAMSULOSIN HCL 0.4 MG CAP.SR.24H PO SCH (20:52)
[2022-02-04] MEDS: DOCUSATE SODIUM 100 MG CAPSULE PO SCH (20:59)
[2022-02-05] MEDS: IPRATROPIUM BROMIDE 0.5 MG/2.5 ML NEBU NEB SCH ×5 (01:19→20:41)
[2022-02-05] MEDS: ALBUTEROL SULFATE 1.25 MG/3 ML NEBU NEB SCH ×5 (01:20→20:42)
[2022-02-05] MEDS: GUAIFENESIN/DEXTROMETHORPHAN 5 ML UDC PO PRN (02:21)
[2022-02-05 04:00] VITALS: BP 128/74
[2022-02-05 06:41] LABS: HEMATOCRIT 39.5 % (36.7-47.1); MEAN CORPUSCULAR HEMOGLOBIN 27.8 uug (23.8-33.4); MEAN CORPUSCULAR VOLUME 83.6 fL (73.0-96.2); PLATELET COUNT (AUTO) 133 K/uL (152-348)
[2022-02-05 06:52] LABS: CARBON DIOXIDE 31 mmol/L (21-32); CHLORIDE 99 mmol/L (98-107); CREATININE 1.8 mg/dL (0.6-1.3); GLUCOSE 126 mg/dL (74-106); MAGNESIUM 2.5 mg/dL (1.8-2.4); POTASSIUM 5.2 mmol/L (3.5-5.1); UREA NITROGEN, BLOOD 71 mg/dL (7-18)
[2022-02-05] MEDS: PANTOPRAZOLE SODIUM 40 MG TABLET.DR PO SCH (07:00)
[2022-02-05] MEDS: ACETYLCYSTEINE 20% 800 MG/4 ML VIAL NEB SCH ×2 (07:55→20:42)
[2022-02-05] MEDS: GUAIFENESIN LA 600 MG TABLET.SA PO SCH ×2 (08:04→20:30)
[2022-02-05] MEDS: methylPREDNISolone SOD SUCC 40 MG/ML VIAL IV SCH ×2 (08:04→20:30)
[2022-02-05] MEDS: FLUTICASONE/VILANTEROL 1 EACH BLST.W.DEV INH SCH (08:04)
--- NOTE | 2022-02-05 08:04 | NUR ---
Patient refusing medication due to lack of sleep.
[2022-02-05] MEDS: FINASTERIDE 5 MG TABLET PO SCH (08:05)
[2022-02-05] MEDS: CLOTRIMAZOLE 1% CREAM 30 GM TUBE TOP SCH ×2 (08:05→16:26)
[2022-02-05] MEDS: HEPARIN SODIUM,PORCINE 5,000 UNITS/ML VIAL SQ SCH ×2 (08:05→20:32)
[2022-02-05] MEDS: REMEDY ESSENTIAL ZINC PASTE 113 GM TOP SCH ×2 (08:06→20:34)
[2022-02-05] MEDS: ACETAMINOPHEN 325 MG TABLET PO PRN ×2 (08:47→20:30)
[2022-02-05] MEDS: GLUCERNA SHAKE 237 ML CAN PO SCH ×3 (09:27→20:36)
[2022-02-05 11:43] VITALS: BP 137/72
--- NOTE | 2022-02-05 12:17 | NUR ---
Patient resting in bed advising to longer receive colace PM due to patient waking up numerous times throughout night to be changed. Will endorse information to PM nurse.
[2022-02-05 15:14] VITALS: BP 147/71
--- NOTE | 2022-02-05 18:35 | NUR ---
Patient tolerated care well throughout shift despite refusing medications majority of shift. Patient also refused breathing treatments. When questioned, patient states they want to just sleep because they had a tough time sleeping last night. IV site patent and intact. Pain managed with acetaminophen. Bed left in lowest position with call light within reach. Comfort measures provided. Will endorse information to PM nurse.
[2022-02-05] MEDS: IV NS 1000 ML 1,000 ML IV PRN (19:51)
[2022-02-05 20:00] VITALS: BP 133/76
[2022-02-05] MEDS: DOCUSATE SODIUM 100 MG CAPSULE PO SCH (20:30)
[2022-02-05] MEDS: TAMSULOSIN HCL 0.4 MG CAP.SR.24H PO SCH (20:30)
[2022-02-05] MEDS: TEMAZEPAM 15 MG CAPSULE PO PRN (22:19)
[2022-02-06] VITALS (11 sets, daily range): BP systolic 107–148; BP diastolic 55–88
[2022-02-06] MEDS: IPRATROPIUM BROMIDE 0.5 MG/2.5 ML NEBU NEB SCH ×4 (01:30→19:13)
[2022-02-06] MEDS: ALBUTEROL SULFATE 1.25 MG/3 ML NEBU NEB SCH ×4 (01:30→19:13)
[2022-02-06 06:59] LABS: HEMATOCRIT 37.4 % (36.7-47.1); MEAN CORPUSCULAR HEMOGLOBIN 28.2 uug (23.8-33.4); MEAN CORPUSCULAR VOLUME 83.5 fL (73.0-96.2); PLATELET COUNT (AUTO) 125 K/uL (152-348)
[2022-02-06] MEDS: PANTOPRAZOLE SODIUM 40 MG TABLET.DR PO SCH (06:59)
--- NOTE | 2022-02-06 06:59 | NUR ---
Patient rested well ini between care; no acute distress;repositioned for comfort; incontinence care done; wound care done; remains on 3L O2; needs attended; report given to Nilesh;
[2022-02-06 07:22] LABS: ALANINE AMINOTRANSFERASE 46 U/L (16-63); ALKALINE PHOSPHATASE 86 U/L (50-136); ASPARTATE AMINOTRANSFERASE 21 U/L (15-37); BILIRUBIN,DIRECT 0.2 mg/dL (0.0-0.2); BILIRUBIN,TOTAL 0.6 mg/dL (0.2-1.0); CARBON DIOXIDE 29 mmol/L (21-32); CHLORIDE 101 mmol/L (98-107); CREATININE 2.6 mg/dL (0.6-1.3); GLUCOSE 111 mg/dL (74-106); MAGNESIUM 2.6 mg/dL (1.8-2.4); PHOSPHOROUS 6.2 mg/dL (2.5-4.9); POTASSIUM 5.5 mmol/L (3.5-5.1); TOTAL PROTEIN, SERUM 4.9 g/dL (6.4-8.2)
[2022-02-06 07:35] LABS: UREA NITROGEN, BLOOD 91 mg/dL (7-18)
[2022-02-06 08:00] LABS: BAND % (MANUAL) 2 % (0-10); MONOCYTES % (MANUAL) 2 % (2-10); NEUTROPHILS % (MANUAL) 96 % (42-75)
[2022-02-06] MEDS: ACETYLCYSTEINE 20% 800 MG/4 ML VIAL NEB SCH ×2 (08:47→19:13)
[2022-02-06] MEDS: ACETAMINOPHEN 325 MG TABLET PO PRN ×2 (09:09→20:31)
--- NOTE | 2022-02-06 09:14 | NUR ---
Patient wants to receive medication after his nap. Will wait to administer medication until patient awakes.
--- NOTE | 2022-02-06 09:24 | NUR ---
Mily ROOT notified of patient's critical lab values.
[2022-02-06] MEDS: GLUCERNA SHAKE 237 ML CAN PO SCH ×3 (10:03→20:00)
[2022-02-06] MEDS: CLOTRIMAZOLE 1% CREAM 30 GM TUBE TOP SCH ×2 (10:54→17:24)
[2022-02-06] MEDS: FINASTERIDE 5 MG TABLET PO SCH (10:54)
[2022-02-06] MEDS: methylPREDNISolone SOD SUCC 40 MG/ML VIAL IV SCH ×2 (10:54→20:56)
[2022-02-06] MEDS: GUAIFENESIN LA 600 MG TABLET.SA PO SCH ×2 (10:54→20:57)
[2022-02-06] MEDS: REMEDY ESSENTIAL ZINC PASTE 113 GM TOP SCH ×2 (10:54→21:06)
[2022-02-06] MEDS: FLUTICASONE/VILANTEROL 1 EACH BLST.W.DEV INH SCH (10:55)
[2022-02-06] MEDS: HEPARIN SODIUM,PORCINE 5,000 UNITS/ML VIAL SQ SCH ×2 (10:55→21:05)
[2022-02-06] MEDS: IV NS 1000 ML 1,000 ML IV PRN (12:09)
[2022-02-06] MEDS: CEFEPIME HCL 1 G in IV DEXTROSE 5% 50 ML IV SCH (13:15)
[2022-02-06] MEDS: METRONIDAZOLE 500 MG TABLET PO SCH ×2 (13:15→21:04)
--- NOTE | 2022-02-06 16:43 | NUR ---
Patient refusing bed bath/cleaning due to exertion. Will endorse information to PM nurse.
--- NOTE | 2022-02-06 20:49 | NUR ---
receuivede pt awake. pt with a productuve coughs. Pt c/o abd pain. Tylenol requested by pt. Pt seen b rt. Will meicate with Tyleno; as ordered. o2 Sat 98.
[2022-02-06] MEDS: TAMSULOSIN HCL 0.4 MG CAP.SR.24H PO SCH (20:55)
[2022-02-06] MEDS: DOCUSATE SODIUM 100 MG CAPSULE PO SCH (21:00)
[2022-02-06] MEDS: GUAIFENESIN/DEXTROMETHORPHAN 5 ML UDC PO PRN (21:00)
[2022-02-06] MEDS: TEMAZEPAM 15 MG CAPSULE PO PRN (21:04)
[2022-02-07] MEDS: ALBUTEROL SULFATE 1.25 MG/3 ML NEBU NEB SCH ×5 (01:40→19:05)
[2022-02-07] MEDS: IPRATROPIUM BROMIDE 0.5 MG/2.5 ML NEBU NEB SCH ×5 (01:40→19:05)
[2022-02-07] MEDS: CEFEPIME HCL 1 G in IV DEXTROSE 5% 50 ML IV SCH ×2 (03:27→13:34)
[2022-02-07] MEDS: TEMAZEPAM 15 MG CAPSULE PO PRN ×2 (03:27→21:44)
--- NOTE | 2022-02-07 03:30 | NUR ---
PT COMP;LAINED OF ABD PAIN., MORPHINE OFFERED, PT REFUSED. HOB 45 DEGREE. MEDICVASTE ITYLENOL.
[2022-02-07] MEDS: ACETAMINOPHEN 325 MG TABLET PO PRN ×2 (03:51→13:41)
[2022-02-07 03:59] VITALS: BP 132/75
[2022-02-07] MEDS: ALPRAZOLAM 0.25 MG TABLET PO PRN (04:03)
[2022-02-07] MEDS: METRONIDAZOLE 500 MG TABLET PO SCH ×3 (05:55→21:42)
[2022-02-07 06:05] LABS: ABG BASE EXCESS -0.5 mmol/L; ABG HCO3 25.4 mmol/L; ABG PCO2 46.9 mmHg (35.0-45.0); ABG PH 7.352 (7.350-7.450); ABG PO2 116.1 mmHg (75.0-100.0); ABG SITE LEFT RADIAL; ABG TOTAL HEMOGLOBIN 12.4 G/dL (13.5-18.0); COHb 0.6 % (0.5-1.5); MetHb 0.3 % (0.0-1.5); O2Hb 97.6 % (94.0-97.0); VENT MODE Nasal Cannula
[2022-02-07 06:40] LABS: CARBON DIOXIDE 27 mmol/L (21-32); CHLORIDE 99 mmol/L (98-107); CREATININE 3.2 mg/dL (0.6-1.3); GLUCOSE 151 mg/dL (74-106); MAGNESIUM 2.4 mg/dL (1.8-2.4); PHOSPHOROUS 7.2 mg/dL (2.5-4.9)
[2022-02-07 06:50] LABS: THYROID STIMULATING HORMONE 0.473 mIU/mL (0.358-3.740)
[2022-02-07 06:58] LABS: UREA NITROGEN, BLOOD 112 mg/dL (7-18)
[2022-02-07 07:14] LABS: HEMATOCRIT 34.5 % (36.7-47.1); MEAN CORPUSCULAR HEMOGLOBIN 27.9 uug (23.8-33.4); MEAN CORPUSCULAR VOLUME 82.8 fL (73.0-96.2); PLATELET COUNT (AUTO) 119 K/uL (152-348)
[2022-02-07] MEDS: ACETYLCYSTEINE 20% 800 MG/4 ML VIAL NEB SCH ×3 (07:18→19:04)
[2022-02-07 07:44] LABS: *RHEUMATOID FACTOR SCREEN NEGATIVE (NEGATIVE)
[2022-02-07 08:00] VITALS: BP 129/79
[2022-02-07 09:00] LABS: LYMPHOCYTES % (MANUAL) 1 % (20-40); NEUTROPHILS % (MANUAL) 99 % (42-75)
[2022-02-07] MEDS: FLUTICASONE/VILANTEROL 1 EACH BLST.W.DEV INH SCH (09:00)
[2022-02-07] MEDS: REMEDY ESSENTIAL ZINC PASTE 113 GM TOP SCH ×2 (09:00→22:00)
[2022-02-07] MEDS: ALBUTEROL SULFATE 1.25 MG/3 ML NEBU NEB PRN (10:05)
[2022-02-07] MEDS: IPRATROPIUM BROMIDE 0.5 MG/2.5 ML NEBU NEB PRN (10:05)
[2022-02-07] MEDS: methylPREDNISolone SOD SUCC 40 MG/ML VIAL IV SCH ×2 (11:49→21:28)
[2022-02-07] MEDS: FINASTERIDE 5 MG TABLET PO SCH (11:50)
[2022-02-07] MEDS: CLOTRIMAZOLE 1% CREAM 30 GM TUBE TOP SCH ×2 (11:50→16:52)
[2022-02-07] MEDS: PANTOPRAZOLE SODIUM 40 MG TABLET.DR PO SCH (11:50)
[2022-02-07] MEDS: GUAIFENESIN LA 600 MG TABLET.SA PO SCH ×2 (11:50→21:42)
[2022-02-07] MEDS: HEPARIN SODIUM,PORCINE 5,000 UNITS/ML VIAL SQ SCH ×2 (11:51→21:36)
[2022-02-07] MEDS: GLUCERNA SHAKE 237 ML CAN PO SCH ×3 (11:51→20:00)
[2022-02-07 12:00] VITALS: BP 165/41
[2022-02-07 16:00] VITALS: BP 137/75
[2022-02-07] MEDS ORDERED: SODIUM POLYSTYRENE SULFONATE 15 G/60 ML LIQUID UDC PO ONE (18:30)
[2022-02-07 20:00] VITALS: BP 143/75
--- NOTE | 2022-02-07 20:00 | NUR ---
PT ISD AWAKE IN BED WITH S/S OF SOB. EDEMATOUS IN THE B/L LOWER EXTREMITIES AND UPPER EXREMITIES PATIENT STATES THAT HE IS NOT ABLE TO URINATE. SENIOR COMMERCIAL LOAN OFFICER DOCTOR PAGED.. RT IN TO ADMIUNISTER BREATHING TREATMNT TO PATENT.
[2022-02-07] MEDS ORDERED: LIDOCAINE 2% (GLYDO= UROJET) 10 ML JELLY MM PRN ×2 (20:15→20:30)
[2022-02-07] MEDS ORDERED: SODIUM POLYSTYRENE SULFONATE 15 G/60 ML LIQUID UDC PO STA (20:35)
[2022-02-07] MEDS: DOCUSATE SODIUM 100 MG CAPSULE PO SCH (21:00)
[2022-02-07] MEDS ORDERED: LIDOCAINE 2% (GLYDO= UROJET) 10 ML JELLY MM ONE (21:17)
[2022-02-07] MEDS: TAMSULOSIN HCL 0.4 MG CAP.SR.24H PO SCH (21:42)
[2022-02-07] MEDS: MORPHINE SULFATE 2 MG/1 ML DISP.SYRIN IV PRN (21:42)
[2022-02-08] VITALS: BP 123/61
[2022-02-08] MEDS: ALBUTEROL SULFATE 1.25 MG/3 ML NEBU NEB SCH ×4 (01:32→18:46)
[2022-02-08] MEDS: IPRATROPIUM BROMIDE 0.5 MG/2.5 ML NEBU NEB SCH ×4 (01:33→18:46)
[2022-02-08] MEDS: CEFEPIME HCL 1 G in IV DEXTROSE 5% 50 ML IV SCH ×2 (01:36→14:13)
[2022-02-08] MEDS: ACETAMINOPHEN 325 MG TABLET PO PRN ×3 (02:40→21:05)
[2022-02-08 03:53] VITALS: BP 123/61
--- NOTE | 2022-02-08 05:05 | NUR ---
pt refuse bed bath states I want to wait until I go to the new roomIncontinent of urine. No BM. PT transfe to telemetry, room 324. Pt is awake . No distress.
[2022-02-08] MEDS ORDERED: LIDOCAINE 2% (GLYDO= UROJET) 10 ML JELLY MM ONE (06:28)
[2022-02-08] MEDS: MORPHINE SULFATE 2 MG/1 ML DISP.SYRIN IV PRN ×2 (06:37→07:45)
[2022-02-08] MEDS: PANTOPRAZOLE SODIUM 40 MG TABLET.DR PO SCH (06:38)
[2022-02-08] MEDS: METRONIDAZOLE 500 MG TABLET PO SCH ×3 (06:38→21:52)
--- NOTE | 2022-02-08 06:45 | NUR ---
Midline in right upper arn dislodged. Its unknown how line dislodged. Patient was assisted to have bed bath on all linens were changed and gown was removed by FLOORPERSON without ni=shaheen information technology assistant. No bleeding noted.
[2022-02-08 07:17] LABS: HEMATOCRIT 38.8 % (36.7-47.1); MEAN CORPUSCULAR HEMOGLOBIN 27.9 uug (23.8-33.4); MEAN CORPUSCULAR VOLUME 83.7 fL (73.0-96.2); PLATELET COUNT (AUTO) 167 K/uL (152-348)
[2022-02-08 07:32] LABS: CARBON DIOXIDE 28 mmol/L (21-32); CHLORIDE 98 mmol/L (98-107); CREATININE 3.6 mg/dL (0.6-1.3); MAGNESIUM 2.7 mg/dL (1.8-2.4); PHOSPHOROUS 7.6 mg/dL (2.5-4.9)
[2022-02-08 07:43] LABS: GLUCOSE 154 mg/dL (74-106)
--- NOTE | 2022-02-08 07:49 | NUR ---
Shelley cath #16F insertede as per MD, Smalll amount of bloody urine was noticed around the meatus on insertion of shelley catheter. Pt tolerated the procedurew reasonable well. Urim=ne is clear yellow. Zofran administered as ordered.
[2022-02-08] MEDS: ACETYLCYSTEINE 20% 800 MG/4 ML VIAL NEB SCH ×2 (07:57→18:46)
--- NOTE | 2022-02-08 08:00 | NUR ---
AWAKE ALERT AND ORIENTED X3 NO SS OF ACUTE DISTRESS BUT GENERALIZED PAIN 2/10SR ON MONITOR
--- NOTE | 2022-02-08 08:47 | NUR ---
Patients belonging sent with patient to telemetry, include a wallet with credit cards. Pt refused to keep same secured. Pty statwes"leave it there'refering to his wallet with credit/debit card. Wallet placed in belonging bag with his pant. Endore same to Nursing crane crew supervisor and morning RN.
[2022-02-08 08:56] LABS: POTASSIUM 6.5 mmol/L (3.5-5.1); UREA NITROGEN, BLOOD 127 mg/dL (7-18)
[2022-02-08 09:06] LABS: *IMMUNOGLOBULIN G, SERUM 318 mg/dL (603-1613); IMMUNOGLOBULIN A, SERUM 127 mg/dL (61-437); IMMUNOGLOBULIN M, SERUM 30 mg/dL (15-143)
[2022-02-08] MEDS: GUAIFENESIN LA 600 MG TABLET.SA PO SCH ×2 (09:14→21:05)
[2022-02-08] MEDS: FINASTERIDE 5 MG TABLET PO SCH (09:14)
[2022-02-08] MEDS: methylPREDNISolone SOD SUCC 40 MG/ML VIAL IV SCH ×2 (09:14→21:04)
[2022-02-08] MEDS: HEPARIN SODIUM,PORCINE 5,000 UNITS/ML VIAL SQ SCH ×2 (09:15→21:00)
[2022-02-08] MEDS: FLUTICASONE/VILANTEROL 1 EACH BLST.W.DEV INH SCH (09:16)
[2022-02-08] MEDS: CLOTRIMAZOLE 1% CREAM 30 GM TUBE TOP SCH ×2 (09:16→16:53)
[2022-02-08] MEDS: REMEDY ESSENTIAL ZINC PASTE 113 GM TOP SCH ×2 (09:17→21:42)
[2022-02-08] MEDS: GLUCERNA SHAKE 237 ML CAN PO SCH ×3 (09:17→21:04)
[2022-02-08] MEDS: IV NS 1000 ML 1,000 ML IV PRN (09:31)
[2022-02-08] MEDS ORDERED: SODIUM POLYSTYRENE SULFONATE 15 G/60 ML LIQUID UDC PO ONE (10:00)
[2022-02-08 11:06] LABS: HEPATITIS B SURFACE AG Negative (Negative)
[2022-02-08] MEDS ORDERED: INSULIN REGULAR, HUMAN 300 UNIT/3 ML VIAL IV ONE (12:00)
[2022-02-08] MEDS ORDERED: DEXTROSE 50% 50 ML DISP.SYRIN IV ONE (12:00)
--- NOTE | 2022-02-08 12:30 | NUR ---
SEEN BY Hugo DAVIS HOSPITALIST, NOTED LABS WITH ORDERS AND CARRIED
[2022-02-08 12:32] LABS: BAND % (MANUAL) 1 % (0-10); MONOCYTES % (MANUAL) 1 % (2-10); NEUTROPHILS % (MANUAL) 98 % (42-75)
[2022-02-08 12:37] VITALS: BP 106/60
[2022-02-08 12:59] LABS: CARBON DIOXIDE 29 mmol/L (21-32); CHLORIDE 99 mmol/L (98-107); CREATININE 3.4 mg/dL (0.6-1.3); GLUCOSE 227 mg/dL (74-106)
[2022-02-08 13:35] LABS: POTASSIUM 6.3 mmol/L (3.5-5.1); UREA NITROGEN, BLOOD 126 mg/dL (7-18)
--- NOTE | 2022-02-08 13:53 | NUR ---
SEEN BY DR TRIANA NOTED LABS AND SPOKE WITH PATIENT GAVE ORDERS AND CARRIED
[2022-02-08] MEDS ORDERED: SODIUM POLYSTYRENE SULF POWDER 15 GM UDC PO SCH (14:00)
[2022-02-08] MEDS: FUROSEMIDE 20 MG/2 ML VIAL IV SCH (14:13)
[2022-02-08] MEDS: SODIUM POLYSTYRENE SULFONATE 15 G/60 ML LIQUID UDC PO SCH ×2 (14:13→21:12)
--- NOTE | 2022-02-08 14:16 | NUR ---
dextrose and insulin given for high potassium
--- NOTE | 2022-02-08 16:06 | NUR ---
SR ON MONITOR WILL CONTINUE TELE OBSERVATION ORDERED SR ON MONITOR
[2022-02-08 17:16] VITALS: BP 134/72
[2022-02-08 20:24] VITALS: BP 141/83
--- NOTE | 2022-02-08 20:51 | NUR ---
NOTIFIED SUSAN ROOT REGARDING NEWLY NOTED BLOOD TINGED URINE IN PATIENTS BURDEN CATHETER. COMPOUNDING AND FINISHING SUPERVISOR ADVISED TO HOLD OFF ADMINISTERING HEPARIN/ SODIUM 5,000U/1ML.
--- NOTE | 2022-02-08 20:55 | NUR ---
RECEIVED PATIENT IN BED. AAOX4. ON TELEMONITOR, SHOWING SINUS RHYTHM WITH HR OF 78BPM. ON 3L O2, SATURATING AT 97%. LABORED BREATHING NOTED. WITH BURDEN CATHETER, DRAINING BLOOD TINGED URINE VIA GRAVITY. IVF INFUSING WELL. PT REPOSITIONED FOR COMFORT. ASPIRATION PRECAUTIONS INITIATED. PT MONITORED CLOSELY.
[2022-02-08] MEDS: DOCUSATE SODIUM 100 MG CAPSULE PO SCH (21:00)
[2022-02-08] MEDS: TAMSULOSIN HCL 0.4 MG CAP.SR.24H PO SCH (21:06)
[2022-02-08] MEDS: TEMAZEPAM 15 MG CAPSULE PO PRN (21:53)
[2022-02-09 00:06] VITALS: BP 131/80
[2022-02-09] MEDS: CEFEPIME HCL 1 G in IV DEXTROSE 5% 50 ML IV SCH ×2 (00:31→13:06)
[2022-02-09] MEDS: IV NS 1000 ML 1,000 ML IV PRN (00:32)
[2022-02-09] MEDS: IPRATROPIUM BROMIDE 0.5 MG/2.5 ML NEBU NEB SCH ×5 (00:41→20:31)
[2022-02-09] MEDS: ALBUTEROL SULFATE 1.25 MG/3 ML NEBU NEB SCH ×5 (00:41→20:32)
[2022-02-09 04:21] VITALS: BP 150/68
[2022-02-09] MEDS: METRONIDAZOLE 500 MG TABLET PO SCH ×3 (05:50→21:22)
[2022-02-09] MEDS: PANTOPRAZOLE SODIUM 40 MG TABLET.DR PO SCH (06:00)
--- NOTE | 2022-02-09 06:04 | NUR ---
PATIENT SLEPT THROUGH THE NIGHT, WITH NO COMPLAINTS. ON TELEMONITOR, SHOWING SINUS RHYTHM WITH EPISODES OF PVCS, PACS, AND BIGEMINY. ON 3L O2, SATURATING AT 99%. BREATHING TREATMENT DONE, ROUTINELY. WITH BURDEN CATHETER, URINE VIA GRAVITY. IVF INFUSING WELL. PT REMAINED UPRIGHT TO FACILITATE IN BREATHING. ORAL CARE DONE. ASPIRATION PRECAUTIONS MAINTAINED. WILL ENDORSE TO DAY SHIFT.
[2022-02-09 06:36] LABS: HEMATOCRIT 38.1 % (36.7-47.1); MEAN CORPUSCULAR HEMOGLOBIN 27.9 uug (23.8-33.4); MEAN CORPUSCULAR VOLUME 83.4 fL (73.0-96.2); PLATELET COUNT (AUTO) 151 K/uL (152-348)
[2022-02-09 06:48] LABS: CARBON DIOXIDE 31 mmol/L (21-32); CHLORIDE 102 mmol/L (98-107); CREATININE 2.7 mg/dL (0.6-1.3); GLUCOSE 138 mg/dL (74-106); MAGNESIUM 2.4 mg/dL (1.8-2.4); PHOSPHOROUS 6.8 mg/dL (2.5-4.9); POTASSIUM 5.2 mmol/L (3.5-5.1)
[2022-02-09 06:57] LABS: UREA NITROGEN, BLOOD 115 mg/dL (7-18)
[2022-02-09] MEDS: ACETYLCYSTEINE 20% 800 MG/4 ML VIAL NEB SCH ×2 (07:47→20:30)
--- NOTE | 2022-02-09 08:15 | NUR ---
RECEIVED PATIENT ON BED RESTING. PATIENT IS AOX4.. NO COMPLAIN OF PAIN. SINUS RHYTHM ON TELE MONITOR. SACRAL WOUND NOTED. WOUND DRESSING IS CLEAN AND INTACT. ON 2L/MIN NC SATURATING 93-95%.
[2022-02-09] MEDS: SODIUM POLYSTYRENE SULFONATE 15 G/60 ML LIQUID UDC PO SCH ×2 (08:44→22:00)
[2022-02-09] MEDS: GUAIFENESIN LA 600 MG TABLET.SA PO SCH ×2 (08:45→21:16)
[2022-02-09] MEDS: FINASTERIDE 5 MG TABLET PO SCH (08:45)
[2022-02-09] MEDS: methylPREDNISolone SOD SUCC 40 MG/ML VIAL IV SCH ×2 (08:45→21:12)
[2022-02-09] MEDS: HEPARIN SODIUM,PORCINE 5,000 UNITS/ML VIAL SQ SCH ×2 (08:48→21:39)
[2022-02-09] MEDS: FUROSEMIDE 20 MG/2 ML VIAL IV SCH (08:48)
[2022-02-09] MEDS: CLOTRIMAZOLE 1% CREAM 30 GM TUBE TOP SCH ×2 (08:49→18:19)
[2022-02-09] MEDS: FLUTICASONE/VILANTEROL 1 EACH BLST.W.DEV INH SCH (08:52)
[2022-02-09] MEDS: REMEDY ESSENTIAL ZINC PASTE 113 GM TOP SCH ×2 (08:52→21:41)
[2022-02-09 09:06] LABS: *ANTI-SCLERODERMA-70 AB <0.2 AI (0.0-0.9); *SJOGREN'S ANTI-SS-A <0.2 AI (0.0-0.9); *SJOGREN'S ANTI-SS-B <0.2 AI (0.0-0.9); *SMITH ANTIBODIES <0.2 AI (0.0-0.9); ANTI-DNA(DS) AB, QN <1 IU/mL (0-9)
[2022-02-09] MEDS: GLUCERNA SHAKE 237 ML CAN PO SCH ×3 (10:29→21:41)
--- NOTE | 2022-02-09 10:30 | NUR ---
RIGHT WRIST 20G IV GOT PULLED OUT. RIGHT UPPER ARM MIDLINE 18G WAS PLACED.
[2022-02-09 12:01] VITALS: BP 112/67
[2022-02-09 12:06] LABS: A/G RATIO 0.8 (0.7-1.7); ALBUMIN 1.7 g/dL (2.9-4.4); ALPHA-1-GLOBULIN 0.5 g/dL (0.0-0.4); ALPHA-2-GLOBULIN 0.8 g/dL (0.4-1.0); BETA GLOBULIN 0.5 g/dL (0.7-1.3); GAMMA GLOBULIN 0.3 g/dL (0.4-1.8); GLOBULIN, TOTAL 2.1 g/dL (2.2-3.9); M-SPIKE Not Observed g/dL (Not Observed)
[2022-02-09 16:13] VITALS: BP 135/69
[2022-02-09] MEDS: AMMONIUM LACTATE 12% LOTION 225 GM BOTTLE TP SCH (18:19)
--- NOTE | 2022-02-09 19:30 | NUR ---
Received patient in bed, alert oriented, sob on exertion, no chest pain on 2 liter nc, sat wnl, patient seated on his sacrum, hob elevated at 40 degree due to difficulty breathing, but when tries to turn side by side, preferred to seat on his buttock, refused to be turn and reposition, cont to encourage. tele monitor sinus rhythm, sinus tachy 101, cont to monitor.
[2022-02-09 20:49] VITALS: BP 128/76
[2022-02-09] MEDS: DOCUSATE SODIUM 100 MG CAPSULE PO SCH (21:00)
[2022-02-09] MEDS: TAMSULOSIN HCL 0.4 MG CAP.SR.24H PO SCH (21:13)
[2022-02-09] MEDS: ACETAMINOPHEN 325 MG TABLET PO PRN (21:22)
--- NOTE | 2022-02-09 22:00 | NUR ---
Patient alert oriented, no sob when at rest, preferred to seat on his buttock/sacrum, has difficulty of breathing when hob lowered, and turn side by side, cont to encourage to turn and reposition, ordered low air loss mattress for wound management, cont to monitor.
[2022-02-09] MEDS: TEMAZEPAM 15 MG CAPSULE PO PRN (22:50)
--- NOTE | 2022-02-09 22:50 | NUR ---
Patient refused kayaxelate po, offered twice but refused, explained the risk and benefit, but refused, state "he tired of the bowel movement" explained that intended effect of the medicine, to lower potassium, but still refused.
[2022-02-09] MEDS: GUAIFENESIN/DEXTROMETHORPHAN 5 ML UDC PO PRN (23:50)
[2022-02-10 00:04] VITALS: BP 97/59
[2022-02-10] MEDS: CEFEPIME HCL 1 G in IV DEXTROSE 5% 50 ML IV SCH ×2 (00:34→11:57)
[2022-02-10] MEDS: IPRATROPIUM BROMIDE 0.5 MG/2.5 ML NEBU NEB SCH ×4 (01:55→19:30)
[2022-02-10] MEDS: ALBUTEROL SULFATE 1.25 MG/3 ML NEBU NEB SCH ×4 (01:55→19:30)
[2022-02-10 04:32] VITALS: BP 97/61
[2022-02-10] MEDS: METRONIDAZOLE 500 MG TABLET PO SCH ×2 (05:20→14:10)
[2022-02-10 06:13] LABS: HEMATOCRIT 34.2 % (36.7-47.1); MEAN CORPUSCULAR HEMOGLOBIN 27.9 uug (23.8-33.4); MEAN CORPUSCULAR VOLUME 82.8 fL (73.0-96.2); PLATELET COUNT (AUTO) 118 K/uL (152-348)
--- NOTE | 2022-02-10 06:24 | NUR ---
Patient asleep but arousable, no sob when at rest, no chest pain, hob elevated, on continuous 2 liter NC oxygen sat 95, patient sleep on 35 to 40 degrees elevated head due to complain of shortness breath, refused to be turn side by side to prevent skin breakdown, tx done on sacral wound, shelley cath patent, cont to monitor.
[2022-02-10] MEDS: PANTOPRAZOLE SODIUM 40 MG TABLET.DR PO SCH (06:31)
[2022-02-10 06:47] LABS: CARBON DIOXIDE 32 mmol/L (21-32); CHLORIDE 103 mmol/L (98-107); CREATININE 2.2 mg/dL (0.6-1.3); GLUCOSE 142 mg/dL (74-106); PHOSPHOROUS 5.7 mg/dL (2.5-4.9); POTASSIUM 4.2 mmol/L (3.5-5.1)
[2022-02-10 06:53] LABS: UREA NITROGEN, BLOOD 101 mg/dL (7-18)
--- NOTE | 2022-02-10 08:00 | NUR ---
RECEIVED CLIENT ON BED. AOX4. ON 2/L MIN. NO COMPLAIN OF PAIN. ASPIRATION PRECAUTION. REPOSITION Q2HR.
[2022-02-10] MEDS: ACETYLCYSTEINE 20% 800 MG/4 ML VIAL NEB SCH ×2 (08:35→19:30)
[2022-02-10] MEDS: SODIUM POLYSTYRENE SULFONATE 15 G/60 ML LIQUID UDC PO SCH (09:00)
[2022-02-10] MEDS: GUAIFENESIN LA 600 MG TABLET.SA PO SCH ×2 (09:18→21:45)
[2022-02-10] MEDS: HEPARIN SODIUM,PORCINE 5,000 UNITS/ML VIAL SQ SCH ×2 (09:20→22:00)
[2022-02-10] MEDS: FUROSEMIDE 20 MG/2 ML VIAL IV SCH (09:20)
[2022-02-10] MEDS: FINASTERIDE 5 MG TABLET PO SCH (09:20)
[2022-02-10] MEDS: methylPREDNISolone SOD SUCC 40 MG/ML VIAL IV SCH ×2 (09:21→22:07)
[2022-02-10] MEDS: FLUTICASONE/VILANTEROL 1 EACH BLST.W.DEV INH SCH (09:21)
[2022-02-10] MEDS: REMEDY ESSENTIAL ZINC PASTE 113 GM TOP SCH ×2 (09:22→23:31)
[2022-02-10] MEDS: AMMONIUM LACTATE 12% LOTION 225 GM BOTTLE TP SCH ×2 (09:22→17:22)
[2022-02-10] MEDS: CLOTRIMAZOLE 1% CREAM 30 GM TUBE TOP SCH ×2 (09:49→17:21)
[2022-02-10] MEDS: GLUCERNA SHAKE 237 ML CAN PO SCH ×3 (11:44→23:30)
[2022-02-10 11:50] VITALS: BP 117/76
[2022-02-10] MEDS ORDERED: METOCLOPRAMIDE HCL 10 MG/2 ML VIAL IV SCH (15:45)
--- NOTE | 2022-02-10 16:00 | NUR ---
AIR MATTRESS APPLIED. DRESSING CHANGE ON SACRUM ORDERED.
[2022-02-10 16:55] VITALS: BP 122/70
--- NOTE | 2022-02-10 17:00 | NUR ---
DISCUSSED WITH THE PATIENT THE PROCEDURE FOR BIPIN. INFORMED CONSENT SIGNED.
--- NOTE | 2022-02-10 18:51 | NUR ---
SPOKE WITH AMNA FUNEZ TECH. WILL KEEP PATIENT NPO AFTER MIDNIGHT. NO SCHEDULED TIME YET FOR TOMORROW SBFT AND CT BIOPSY. HOLD HEPARIN IN MORNING. WILL ENDORSE ONCOMING SHIFT.
[2022-02-10] MEDS: IV NS 1000 ML 1,000 ML IV PRN (19:00)
--- NOTE | 2022-02-10 19:35 | NUR ---
Received patient in bed, alert oriented, no chest pain, no sob when at rest, tele monitor sinus rhythm, sinus tachy with PAC, on 2 liters nc, sat 94% and up, no complain of pain, patient noted with moist cough, encouraged not to drink too much fluids, hob elevated 45 degrees, cont to monitor.
[2022-02-10 20:52] VITALS: BP 133/68
[2022-02-10] MEDS: METOCLOPRAMIDE HCL 10 MG/2 ML VIAL IV SCH (21:44)
[2022-02-10] MEDS: ACETAMINOPHEN 325 MG TABLET PO PRN (21:45)
[2022-02-10] MEDS: TAMSULOSIN HCL 0.4 MG CAP.SR.24H PO SCH (21:45)
[2022-02-10] MEDS: TEMAZEPAM 15 MG CAPSULE PO PRN (21:46)
[2022-02-10] MEDS: DOCUSATE SODIUM 100 MG CAPSULE PO SCH (22:00)
--- NOTE | 2022-02-10 22:00 | NUR ---
Patient heparin on hold due to procedure in am, lung biopsies. Patient refused medication colace, patient was encourage to turn and reposition self to prevent further skin breakdown, but refused, non compliant with care and medication, cont to monitor.
--- NOTE | 2022-02-10 22:30 | NUR ---
Patient moist cough still present, held IV NS at this time, kept hob elevated, sat wnl, cont to monitor.
--- NOTE | 2022-02-10 23:00 | NUR ---
PHONE CALL, VENITA FROM [facility] REGARDING PT"S TRANSFER ,UNDERSIGNED COMMUNICATED THAT PT WILL HAVE DX PROCEDURES IN AM, NUTRITIONAL CHEMIST DEBORAH CONTACT THEM IN AM.
[2022-02-11 00:22] VITALS: BP 141/84
[2022-02-11] MEDS: IPRATROPIUM BROMIDE 0.5 MG/2.5 ML NEBU NEB SCH ×4 (01:30→19:25)
[2022-02-11] MEDS: ALBUTEROL SULFATE 1.25 MG/3 ML NEBU NEB SCH ×4 (01:30→19:25)
[2022-02-11] MEDS: IPRATROPIUM BROMIDE 0.5 MG/2.5 ML NEBU NEB PRN (03:56)
[2022-02-11] MEDS: ALBUTEROL SULFATE 1.25 MG/3 ML NEBU NEB PRN (03:56)
[2022-02-11 04:46] VITALS: BP 131/75
[2022-02-11] MEDS: METOCLOPRAMIDE HCL 10 MG/2 ML VIAL IV SCH ×2 (06:01→14:29)
[2022-02-11] MEDS: PANTOPRAZOLE SODIUM 40 MG TABLET.DR PO SCH (06:03)
[2022-02-11 06:28] LABS: HEMATOCRIT 37.4 % (36.7-47.1); MEAN CORPUSCULAR HEMOGLOBIN 27.9 uug (23.8-33.4); MEAN CORPUSCULAR VOLUME 83.9 fL (73.0-96.2); PLATELET COUNT (AUTO) 128 K/uL (152-348)
[2022-02-11 06:54] LABS: CARBON DIOXIDE 31 mmol/L (21-32); CHLORIDE 104 mmol/L (98-107); CREATININE 1.9 mg/dL (0.6-1.3); GLUCOSE 135 mg/dL (74-106); MAGNESIUM 2.2 mg/dL (1.8-2.4); PHOSPHOROUS 5.3 mg/dL (2.5-4.9); POTASSIUM 4.3 mmol/L (3.5-5.1)
[2022-02-11 07:16] LABS: UREA NITROGEN, BLOOD 89 mg/dL (7-18)
[2022-02-11] MEDS: ACETYLCYSTEINE 20% 800 MG/4 ML VIAL NEB SCH ×2 (07:50→19:25)
--- NOTE | 2022-02-11 08:30 | NUR ---
Dr. Cleaya aware of moist cough and NS IV fluids on hold.
[2022-02-11] MEDS: GUAIFENESIN LA 600 MG TABLET.SA PO SCH ×2 (09:00→21:22)
[2022-02-11] MEDS: FINASTERIDE 5 MG TABLET PO SCH (09:00)
[2022-02-11] MEDS: HEPARIN SODIUM,PORCINE 5,000 UNITS/ML VIAL SQ SCH ×2 (09:00→21:41)
[2022-02-11] MEDS: methylPREDNISolone SOD SUCC 40 MG/ML VIAL IV SCH ×2 (09:21→21:22)
[2022-02-11] MEDS: FUROSEMIDE 20 MG/2 ML VIAL IV SCH (09:21)
[2022-02-11] MEDS: AMMONIUM LACTATE 12% LOTION 225 GM BOTTLE TP SCH ×2 (09:31→17:49)
[2022-02-11] MEDS: FLUTICASONE/VILANTEROL 1 EACH BLST.W.DEV INH SCH (09:31)
[2022-02-11] MEDS: REMEDY ESSENTIAL ZINC PASTE 113 GM TOP SCH (09:31)
[2022-02-11] MEDS: CLOTRIMAZOLE 1% CREAM 30 GM TUBE TOP SCH ×2 (09:32→17:49)
[2022-02-11] MEDS: GLUCERNA SHAKE 237 ML CAN PO SCH ×2 (09:33→14:00)
--- NOTE | 2022-02-11 11:01 | NUR ---
Leti France PEARL DIGGER, Oncology made aware patient would like to have ice chips, verbalizes if he cant have ice chips prior to lung biopsy procedure he will just cancel the procedure. New orders for NPO- okay to have ice chips, noted and carried out, patient is content.
[2022-02-11 11:22] VITALS: BP 126/86
[2022-02-11] MEDS ORDERED: LIDOCAINE HCL 1% 20 ML VIAL ONE (13:43)
--- NOTE | 2022-02-11 14:45 | NUR ---
Patient taken to CT for lung biopsy.
[2022-02-11] MEDS ORDERED: FENTANYL CITRATE 100 MCG/2 ML AMPUL IV PRN (15:00)
[2022-02-11] MEDS ORDERED: MIDAZOLAM HCL 2 MG/2 ML VIAL IV PRN (15:00)
[2022-02-11] MEDS ORDERED: NALOXONE HCL 0.4 MG/ML AMPUL IV PRN (15:00)
[2022-02-11] MEDS ORDERED: DIATR MEGLU/DIATRIZOATE SODIUM 30 ML BOTTLE ONE (17:00)
--- NOTE | 2022-02-11 17:10 | NUR ---
Patient returned from right lung biopsy, specimen collected was adequeta and sent with pathologist Dr. Floyd. Procedure performed by Dr. Gallo. Patient at bedside.
--- NOTE | 2022-02-11 18:00 | NUR ---
Patient small bowel follow though performed, next xray to be done at 7pm.
--- NOTE | 2022-02-11 18:49 | NUR ---
Patient has one medium bowel movement at this time, incontinence. Hygiene provided, patient tolerates assist with perineal care poorly, severe SOB noted. Patient able to do deep pursed lipped breathing and recovers after a few minutes.
--- NOTE | 2022-02-11 19:27 | NUR ---
Marquise Menchaca AUTO SERVICE ADVISOR made aware Lung biopsy and small bowel follow through completed and of bowel movement. Orders noted and carried out to resume Renal diet.
--- NOTE | 2022-02-11 19:35 | NUR ---
Received patient in bed no sob no chest pain, tele monitor sinus tach 103 to 108, with PAC, no complain of pain, still has moist cough, Dr Celaya ordered to hold on IV fluids at this time, patient has lose bm will kept it clean and dry, hob elevated, still on 3 liters NC for SOB on exertion, tx cont on sacral wound, call light within reach, cont to monitor.
[2022-02-11 20:00] VITALS: BP_SYST 110; BP_SYST 153; BP_DIAS 75; BP_DIAS 84
[2022-02-11] MEDS: TAMSULOSIN HCL 0.4 MG CAP.SR.24H PO SCH (21:22)
[2022-02-11] MEDS: ACETAMINOPHEN 325 MG TABLET PO PRN (21:22)
[2022-02-11] MEDS: TEMAZEPAM 15 MG CAPSULE PO PRN (21:23)
[2022-02-11] MEDS: DOCUSATE SODIUM 100 MG CAPSULE PO SCH (22:00)
[2022-02-12] MEDS: REMEDY ESSENTIAL ZINC PASTE 113 GM TOP SCH ×2 (00:27→09:41)
[2022-02-12] MEDS: METOCLOPRAMIDE HCL 10 MG/2 ML VIAL IV SCH ×2 (00:30→05:31)
[2022-02-12] MEDS: GLUCERNA SHAKE 237 ML CAN PO SCH ×2 (00:30→10:05)
[2022-02-12] MEDS: IPRATROPIUM BROMIDE 0.5 MG/2.5 ML NEBU NEB SCH ×2 (01:00→07:45)
[2022-02-12] MEDS: ALBUTEROL SULFATE 1.25 MG/3 ML NEBU NEB SCH ×2 (01:00→07:45)
[2022-02-12 04:00] VITALS: BP 119/72
--- NOTE | 2022-02-12 04:37 | NUR ---
Patient awake, but slept well, no chest pain, on sob on exertion/activity, on 3 liter NC sat wnl, with episode of moist cough but unable to expectorate according to patient, encourage to cough it out so that sputum can be suctioned, easily get tired, planned all activity, noted patient like to drink fluid frequently and believed that patient drank fulid little excess of soda, water, encourage to slow down on the fluids, but patient do what he likes, cont to monitor.
--- NOTE | 2022-02-12 04:44 | NUR ---
Patient had a large lose bm. kept it clean and dry.
[2022-02-12] MEDS: PANTOPRAZOLE SODIUM 40 MG TABLET.DR PO SCH (06:03)
[2022-02-12] MEDS: ACETYLCYSTEINE 20% 800 MG/4 ML VIAL NEB SCH (07:45)
[2022-02-12 07:55] LABS: HEMATOCRIT 38.2 % (36.7-47.1); MEAN CORPUSCULAR HEMOGLOBIN 27.8 uug (23.8-33.4); MEAN CORPUSCULAR VOLUME 83.8 fL (73.0-96.2); PLATELET COUNT (AUTO) 124 K/uL (152-348)
[2022-02-12 08:02] LABS: CARBON DIOXIDE 30 mmol/L (21-32); CHLORIDE 102 mmol/L (98-107); CREATININE 1.6 mg/dL (0.6-1.3); GLUCOSE 87 mg/dL (74-106); MAGNESIUM 2.2 mg/dL (1.8-2.4)
[2022-02-12 09:04] LABS: UREA NITROGEN, BLOOD 85 mg/dL (7-18)
[2022-02-12] MEDS: FLUTICASONE/VILANTEROL 1 EACH BLST.W.DEV INH SCH (09:40)
[2022-02-12] MEDS: CLOTRIMAZOLE 1% CREAM 30 GM TUBE TOP SCH (09:41)
[2022-02-12] MEDS: AMMONIUM LACTATE 12% LOTION 225 GM BOTTLE TP SCH (09:41)
[2022-02-12] MEDS: methylPREDNISolone SOD SUCC 40 MG/ML VIAL IV SCH (09:43)
[2022-02-12] MEDS: HEPARIN SODIUM,PORCINE 5,000 UNITS/ML VIAL SQ SCH (09:44)
[2022-02-12] MEDS: GUAIFENESIN LA 600 MG TABLET.SA PO SCH (09:47)
[2022-02-12] MEDS: FINASTERIDE 5 MG TABLET PO SCH (09:47)
[2022-02-12] MEDS: FUROSEMIDE 20 MG/2 ML VIAL IV SCH (09:48)
[2022-02-12] MEDS: MORPHINE SULFATE 2 MG/1 ML DISP.SYRIN IV PRN (10:00)
[2022-02-12 11:43] VITALS: BP 120/76
--- NOTE | 2022-02-12 12:14 | NUR ---
Patient discharged to [facility] with all belongings, including home medications brought in at admission and watch. Report called into Lorelei Abernathy RN at [facility]. Patient is AAOx4. Still noted with SOB at minimal exertion, on 3L 02 via NC. Patient IV to left AC and right upper arm midline removed without complication. Beckett catheter in place, will DC with FC for wound care healing. Patient Transferred via Ambulance, accompanied by 3 EMT's. Instructions given to follow medication reconciliation list provided by Marquise Menchaca NP.
[2022-02-12] MEDS ORDERED: METOCLOPRAMIDE HCL 5 MG TABLET PO SCH (14:00)
== END 2022-02-12 12:29 | DRG 180 ==
LOC: ER 15:43 → TELE3 20:21 → CCU 02-06 07:20 → TELE3 02-08 04:28
PROVIDERS: ADMIT Internal Medicine; ATTEND Nurse Practitioner Family
PROC: 0BBC3ZX Excision of Right Upper Lung Lobe, Percutaneous Approach, Diagnostic (ICD-10-PCS; principal; 2022-01-22)
PROC: 05H633Z Insertion of Infusion Device into Left Subclavian Vein, Percutaneous Approach (ICD-10-PCS; 2022-01-27)
PROC: B547ZZA Ultrasonography of Left Subclavian Vein, Guidance (ICD-10-PCS; 2022-01-27)
PROC: 0W993ZZ Drainage of Right Pleural Cavity, Percutaneous Approach (ICD-10-PCS; 2022-01-28)
PROC: 05H533Z Insertion of Infusion Device into Right Subclavian Vein, Percutaneous Approach (ICD-10-PCS; 2022-02-09)
PROC: B546ZZA Ultrasonography of Right Subclavian Vein, Guidance (ICD-10-PCS; 2022-02-09)
PROC: 0BBC3ZX Excision of Right Upper Lung Lobe, Percutaneous Approach, Diagnostic (ICD-10-PCS; 2022-02-11)
DX: C34.11 Malignant neoplasm of upper lobe, right bronchus or lung (principal); J96.21 Acute and chronic respiratory failure with hypoxia; N17.0 Acute kidney failure with tubular necrosis; J96.22 Acute and chronic respiratory failure with hypercapnia; J15.9 Unspecified bacterial pneumonia; J44.1 Chronic obstructive pulmonary disease with (acute) exacerbation; D68.59 Other primary thrombophilia; K56.7 Ileus, unspecified; I13.0 Hypertensive heart and chronic kidney disease with heart failure and stage 1 through stage 4 chronic kidney disease, or unspecified chronic kidney disease; F17.210 Nicotine dependence, cigarettes, uncomplicated; D69.6 Thrombocytopenia, unspecified; D72.829 Elevated white blood cell count, unspecified; E87.5 Hyperkalemia; I25.10 Atherosclerotic heart disease of native coronary artery without angina pectoris; N18.9 Chronic kidney disease, unspecified; Z86.73 Personal history of transient ischemic attack (TIA), and cerebral infarction without residual deficits; Z92.3 Personal history of irradiation; Z20.822 Contact with and (suspected) exposure to COVID-19; K56.41 Fecal impaction; Z74.09 Other reduced mobility; N40.0 Benign prostatic hyperplasia without lower urinary tract symptoms; I87.2 Venous insufficiency (chronic) (peripheral); Z85.118 Personal history of other malignant neoplasm of bronchus and lung; N28.1 Cyst of kidney, acquired; R91.8 Other nonspecific abnormal finding of lung field; I50.9 Heart failure, unspecified; I89.0 Lymphedema, not elsewhere classified
CPT/HCPCS: 32555; 36415; 36600; 70030-TC; 71045; 71250; 74018; 74250; 76770; 82378; 82747; 82784; 83615; 83735; 83935; 83986; 84100; 84133; 84155; 84156; 84165; 84300; 84443; 84484; 85014; 85025; 85610; 85651; 85730; 86038; 86334; 86430; 86706; 86803; 87040; 87070; 87086; 87177; 87205; 87340; 88112-TC; 93005; 93307; 93880; 94640; 94664; 97161; A4663; A6209; A6213; C1729; G0378; J0692; J1644; J1815; J1940; J1956; J2250; J2270; J2405; J2765; J2920; J2930; J3010; J3490; J3590; J7040; Q9963